=== PATIENT | female | born 1960 | race Caucasian/White ===

== ENCOUNTER 2020-09-12 13:01 | Outpatient (REF) | payer BC, SELFPAY ==
--- NOTE | 2020-09-12 13:07 | MM_ITS ---
EXAMINATION: BONE DENSITOMETRY CLINICAL INDICATION: Asymptomatic menopausal state. COMPARISON: None (current study represents initial baseline exam). TECHNIQUE: Using a [employer] DXA System (software version: 13.1) manufactured by [employer], dual-energy x-ray absorptiometry was performed of the lumbar spine and left hip. The images are of good technical quality. Summary results are attached. FINDINGS: AP SPINE L1-L4: BMD 0.963 g/cm2, Z-score -0.2, T-score -1.8, osteopenia. LEFT FEMUR, NECK: BMD 0.838 g/cm2, Z-score 0.1, T-score -1.4, osteopenia. LEFT FEMUR, TOTAL: BMD 0.829 g/cm2, Z-score -0.2, T-score -1.4, osteopenia. IDENTIFIED RISK FACTORS: Early menopause, secondary osteoporosis, hysterectomy. HISTORY OF FRACTURE: None listed. MEDICATIONS: Calcium supplements or multivitamin, vitamin D. MM/XR DEXA axial skeleton IMPRESSION: 1. DIAGNOSIS: Osteopenia based on the lowest T-score value of -1.8 in the lumbar spine applying World Health Organization criteria. 2. 10-YEAR FRACTURE RISK PREDICTION, FRAX: Major osteoporotic fracture (clinical spine, forearm, hip or shoulder) 7.4%. Hip fracture 0.7%. 3. Treatment Recommendations: NOF guidelines recommend consideration for treatment in postmenopausal women and men age 50 and older presenting with the following: -A hip or vertebral (clinical or morphometric) fracture. -T-score less than or equal to -2.5 at the femoral neck or spine after appropriate evaluation to exclude secondary causes. -Low bone mass at the hip or spine and a 10-year fracture probability by FRAX of greater than or equal to 3% for hip fracture or greater than or equal to 20% for major osteoporotic fracture based on the [place] adapted WHO algorithm. 4. Other Recommendations: All treatment decisions require clinical judgment and consideration of individual patient factors, including patient preferences, comorbidities, previous drug use, risk factors not captured in the FRAX model (e.g. frailty, falls, vitamin D deficiency, increased bone turnover, interval significant decline in bone density) and possible under or overestimation of fracture risk by FRAX. Additional medical evaluation for secondary cause of low bone mineral density may be appropriate. FUTURE SCAN RECOMMENDATION: People with diagnosed cases of osteoporosis or at high risk for fracture should have regular bone mineral density tests. For patients eligible for Medicare, routine testing is allowed once every 2 years. The testing frequency can be increased to one year for patients who have rapidly progressing disease, those who are receiving or discontinuing medical therapy to restore bone mass, or have additional risk factors.
--- NOTE | 2020-09-12 13:08 | MM_ITS ---
EXAMINATION: MM SCREENING DIGITAL BREAST TOMOSYNTHESIS, BILATERAL CLINICAL INFORMATION: Screening. Asymptomatic. The lifetime risk of breast cancer based on the Tyrer-Cuzick Model is 4.4%. COMPARISON: Mammography: October 17, 2018 and studies dating back to July 19, 2013 as well as reports dating back to July 02, 2011 TECHNIQUE: Digital breast tomosynthesis is performed in both the craniocaudal and mediolateral oblique views along with computer-aided detection (CAD). Synthesized 2D images are generated from the tomosynthesis. FINDINGS: The breasts are extremely dense, which lowers the sensitivity of mammography (ACR BI-RADS breast composition Category d). There is multiplicity and bilaterality of benign calcifications. There is also multiplicity and bilaterality of circumscribed densities which are waxing and waning consistent with previously seen cysts. No region of architectural distortion identified. MM/MM tomosynthesis screening BI IMPRESSION: There are no significant changes from prior study. ASSESSMENT: BI-RADS 2: Benign RECOMMENDATION: Routine annual mammography screening. This patient's information was entered into a reminder system with a target due date for their next mammogram.
== END 2020-09-12 13:02 | disposition home or self-care (01) ==
LOC: HO.MAMMO 13:01
PROVIDERS: PCP Internal Medicine; Visit Provider Internal Medicine
DX: Z78.0 Asymptomatic menopausal state (principal); Z12.31 Encounter for screening mammogram for malignant neoplasm of breast
CPT/HCPCS: 77063; 77067; 77080

== ENCOUNTER 2020-11-18 10:17 | Outpatient (REF) | payer BC, SELFPAY | END 2020-11-18 10:18 | disposition home or self-care (01) | LOC: HO.LAB 10:17 | PROVIDERS: Visit Provider Internal Medicine | DX: Z20.822 Contact with and (suspected) exposure to COVID-19 (principal) | CPT/HCPCS: 36415; C9803; U0003; U0005 ==

== ENCOUNTER 2021-06-12 09:47 | Outpatient (REF) | payer BC, SELFPAY ==
[2021-06-12 10:29] LABS: MANUAL DIFF FLAG NO
[2021-06-12 10:38] LABS: Basophils Absolute Auto 0.1 X10*3/uL (0.0-0.2); Eosinophils Absolute Auto 0.1 X10*3/uL (0.0-0.4); Eosinophils Percent Auto 1.2 % (0-4); Hematocrit 43.6 % (37-47); Hemoglobin 14.4 g/dl (12.0-16.0); Imm Gran Abs Auto 0.01 X10*3/uL (0.00-0.03); Imm Gran Pct Auto 0.2 % (0.0-0.4); Lymphocytes Absolute Auto 1.6 X10*3/uL (1.2-4.9); Lymphocytes Percent Auto 31.3 % (20-40); Mean Corpuscular Hemoglobin 32.1 pg (27.0-33.0); Mean Corpuscular Volume 97.1 fL (80-98); Mean Platelet Volume 9.5 fL (9.4-12.3); Monocytes Absolute Auto 0.6 X10*3/uL (0.1-1.2); Monocytes Percent Auto 11.4 % (2-11); Neutrophils Absolute Auto 2.8 X10*3/uL (2.0-8.3); Neutrophils Percent Auto 54.9 % (45-73); Platelet Count 246 X10*3/uL (160-400); Red Blood Count 4.49 X10*6/uL (4.20-5.50); Red Cell Distribution Width 13.1 % (11.0-16.0); White Blood Count 5.1 X10*3/uL (4.8-10.8)
[2021-06-12 11:10] LABS: Free T4 (Free Thyroxine) 1.14 ng/dL (0.71-1.85); Thyroid Stimulating Hormone 0.74 uIU/mL (0.32-4.0); Vitamin D 25-OH Total 34.4 ng/mL (>30)
[2021-06-12 11:21] LABS: Alanine Aminotransferase 24 U/L (0-31); Albumin Level 3.9 g/dL (3.5-5.0); Alkaline Phosphatase 86 U/L (39-117); Anion Gap 9 (12-20); Aspartate Amino Transferase 25 U/L (5-31); Bilirubin Total 0.7 mg/dL (0.0-1.0); Blood Urea Nitrogen 16 mg/dL (9-16); Carbon Dioxide 27 mmol/L (22-29); Chloride 107 mmol/L (96-108); Cholesterol 181 mg/dL; Estimated Glomerular Filt Rate > 60; Glucose Fasting 94 mg/dL (60-99); HDL Cholesterol 91 mg/dL; LDL Cholesterol Calculated 81 mg/dl; Potassium 4.1 mmol/L (3.3-5.1); Sodium 139 mmol/L (135-145); Total Protein 6.1 g/dL (6.5-8.0); Triglycerides 48 mg/dL
== END 2021-06-12 09:48 | disposition home or self-care (01) ==
LOC: HO.10HDL 09:47
PROVIDERS: Visit Provider Internal Medicine
DX: Z00.00 Encounter for general adult medical examination without abnormal findings (principal); E78.00 Pure hypercholesterolemia, unspecified; E04.1 Nontoxic single thyroid nodule; M85.80 Other specified disorders of bone density and structure, unspecified site
CPT/HCPCS: 36415; 80053; 80061; 82306; 84439; 84443; 85025

== ENCOUNTER 2021-06-25 14:52 | Outpatient (REF) | payer BC, SELFPAY ==
--- NOTE | ~2021-06-25 | US_ITS ---
EXAMINATION: US THYROID CLINICAL INFORMATION: Thyroid nodule. COMPARISON: Ultrasound soft tissue head/neck thyroid dated 04/24/2019 and 12/12/2017. TECHNIQUE: Linear transducer grayscale and color Doppler examination with attention to the region of the thyroid. FINDINGS: SIZE: Measurements of the thyroid lobes and nodules are given in sagittal, anteroposterior and transverse dimensions respectively. Right Thyroid Lobe: 5.3 x 2.0 x 2.0 cm, volume 11.1 mL. Previously 5.1 x 2.0 x 2.2 cm, volume 12.1 mL. Parenchyma: The gland echotexture is heterogeneous. Thyroid vascularity is normal. Left Thyroid Lobe: 5.4 x 2.0 x 1.8 cm, volume 10.2 mL. Previously 5.2 x 2.0 x 1.7 cm, volume 9.1 mL. Parenchyma: The gland echotexture is heterogeneous. Thyroid vascularity is normal. Isthmus: 0.5 cm in maximum AP dimension. Previously 0.6 cm. Estimated total number of nodules greater than or equal to 1 cm: 0. Collection Agent nodules are described as follows: 1. Location: Right mid. Size: 0.4 x 0.7 x 0.5 cm, volume 0.08 mL. Previously: 0.9 x 0.5 x 0.7 cm, volume 0.2 mL. Nodule characteristics: Composition: Mixed cystic and solid (1). Echogenicity: Hypoechoic (2). Shape: Not taller than wide (0). Margins: Smooth (0). Echogenic Foci: None (0). ACR TI-RADS total points: 3 ACR TI-RADS category: 3 Significant change in size (>/= 20% in 2 dimensions and minimal increase of 2 mm or 50% or greater increase in volume): Change in features: Change in ACR TI-RADS risk category: 2. Location: Right mid. Size: 0.4 x 0.4 x 0.3 cm, volume 0.03 mL. Previously: 0.4 x 0.2 x 0.4 cm, volume 0.02 mL. Nodule characteristics: Composition: Solid/almost completely solid (2). Echogenicity: Isoechoic (1). Shape: Not taller than wide (0). Margins: Smooth (0). Echogenic Foci: None (0). ACR TI-RADS total points: 3 ACR TI-RADS category: 3 Significant change in size (>/= 20% in 2 dimensions and minimal increase of 2 mm or 50% or greater increase in volume): Change in features: Change in ACR TI-RADS risk category: 3. Location: Right inferior. Size: 0.3 x 0.2 x 0.2 cm, volume 0.01 mL. Previously: 0.2 x 0.1 x 0.2 cm, volume 0.002 mL. Nodule characteristics: Composition: Cystic(0). ACR TI-RADS total points: 0 ACR TI-RADS category: 1 Significant change in size (>/= 20% in 2 dimensions and minimal increase of 2 mm or 50% or greater increase in volume): Change in features: Change in ACR TI-RADS risk category: 4. Location: Left mid. Size: 0.5 x 0.5 x 0.3 cm, volume 0.03 mL. Previously: 0.5 x 0.3 x 0.4 cm, volume 0.03 mL. Nodule characteristics: Composition: Solid/almost completely solid (2). Echogenicity: Isoechoic (1). Shape: Not taller than wide (0). Margins: Smooth (0). Echogenic Foci: None (0). ACR TI-RADS total points: 3 ACR TI-RADS category: 3 Significant change in size (>/= 20% in 2 dimensions and minimal increase of 2 mm or 50% or greater increase in volume): Change in features: Change in ACR TI-RADS risk category: 5. Location: Left inferior. Size: 0.5 x 0.6 x 0.4 cm, volume 0.07 mL. Previously: 0.6 x 0.3 x 0.5 cm, volume 0.05 mL. Nodule characteristics: Composition: Solid/almost completely solid (2). Echogenicity: Isoechoic (1). Shape: Not taller than wide (0). Margins: Smooth (0). Echogenic Foci: None (0). ACR TI-RADS total points: 3 ACR TI-RADS category: 3 Significant change in size (>/= 20% in 2 dimensions and minimal increase of 2 mm or 50% or greater increase in volume): Change in features: Change in ACR TI-RADS risk category: NODES: No lymphadenopathy is seen in the tissue surrounding the thyroid gland. US/US thyroid IMPRESSION: Slightly enlarged heterogeneous thyroid gland. Multiple small thyroid nodules not appreciably changed.. ACR TI-RADS RECOMMENDATION REFERENCE: Ultrasound-guided fine-needle aspiration, followup ultrasound, no further follow up. * TR1 (0 point) and TR 2 (2 points): No FNA or follow up * TR3 (3 points): FNA if more than or equal to 2.5 cm in maximum dimension, followup ultrasound in 1, 3 and 5 years if 1.5 to 2.4 cm in maximum dimension. * TR4 (4-6 points): FNA if more than or equal to 1.5 cm in maximum dimension, followup ultrasound in 1, 2, 3 and 5 years if 1 to 1.4 cm in maximum dimension. * TR5 (more than or equal to 7 points): FNA if more than or equal to 1 cm in maximum dimension, followup ultrasound every year for 5 years if 0.5 to 0.9 cm in maximum dimension. * TR3, TR4 or TR5 nodules that are below the size threshold for follow up receive no follow up.
== END 2021-06-25 14:53 | disposition home or self-care (01) ==
LOC: HO.US 14:52
PROVIDERS: PCP Internal Medicine; Visit Provider Internal Medicine
DX: E05.10 Thyrotoxicosis with toxic single thyroid nodule without thyrotoxic crisis or storm (principal)
CPT/HCPCS: 76536

== ENCOUNTER 2022-06-09 08:45 | Outpatient (REF) | payer BC, SELFPAY ==
[2022-06-09 10:30] LABS: MANUAL DIFF FLAG NO
[2022-06-09 10:38] LABS: Basophils Percent Auto 0.8 % (0-2); Eosinophils Percent Auto 0.8 % (0-4); Hematocrit 44.7 % (37.0-47.0); Hemoglobin 14.9 g/dl (12.0-16.0); Imm Gran Abs Auto 0.01 X10*3/uL (0.00-0.03); Imm Gran Pct Auto 0.2 % (0.0-0.4); Lymphocytes Absolute Auto 1.6 X10*3/uL (1.2-4.9); Lymphocytes Percent Auto 31.6 % (20-40); Mean Corpuscular HGB Conc 33.3 g/dl (31.0-35.0); Mean Corpuscular Hemoglobin 32.1 pg (27.0-33.0); Mean Corpuscular Volume 96.3 fL (80.0-98.0); Mean Platelet Volume 9.6 fL (9.4-12.3); Monocytes Absolute Auto 0.6 X10*3/uL (0.1-1.2); Monocytes Percent Auto 11.5 % (2-11); Neutrophils Absolute Auto 2.8 x10*3/uL (2.0-8.3); Neutrophils Percent Auto 55.1 % (45-73); Platelet Count 235 X10*3/uL (160-400); Red Blood Count 4.64 X10*6/uL (4.20-5.50); Red Cell Distribution Width 13.2 % (11.0-16.0); White Blood Count 5.1 X10*3/uL (4.8-10.8)
[2022-06-09 10:50] LABS: Alanine Aminotransferase 23 U/L (0-31); Alkaline Phosphatase 89 U/L (39-117); Anion Gap 12 (12-20); Aspartate Amino Transferase 22 U/L (5-31); Bilirubin Total 0.5 mg/dL (0.0-1.0); Blood Urea Nitrogen 20 mg/dL (9-16); Calcium 8.8 mg/dL (8.4-10.2); Carbon Dioxide 27 mmol/L (22-29); Chloride 104 mmol/L (96-108); Cholesterol 199 mg/dL; Estimated Glomerular Filt Rate > 60; Glucose Fasting 90 mg/dL (60-99); HDL Cholesterol 96 mg/dL; LDL Cholesterol Calculated 93 mg/dl; Potassium 4.2 mmol/L (3.3-5.1); Sodium 139 mmol/L (135-145); Total Protein 6.5 g/dL (6.5-8.0); Triglycerides 50 mg/dL
== END 2022-06-09 08:46 | disposition home or self-care (01) ==
LOC: HO.10HDL 08:45
PROVIDERS: Visit Provider Internal Medicine
DX: Z00.00 Encounter for general adult medical examination without abnormal findings (principal)
CPT/HCPCS: 36415; 80053; 80061; 85025

== ENCOUNTER 2022-06-21 13:28 | Outpatient (REF) | payer BC, SELFPAY ==
--- NOTE | ~2022-06-21 | US_ITS ---
EXAMINATION: US THYROID CLINICAL INFORMATION: Nodule. COMPARISON: Ultrasound soft tissue head/neck thyroid dated 06/25/2021 and 04/24/2019. TECHNIQUE: Linear transducer grayscale and color Doppler examination with attention to the region of the thyroid. FINDINGS: Numerous left lobe nodules were identified with largest ones measured. SIZE: Measurements of the thyroid lobes and nodules are given in sagittal, anteroposterior and transverse dimensions respectively. Right Thyroid Lobe: 5.3 x 1.5 x 2.0 cm, volume 8.3 mL. Previously 5.3 x 2.0 x 2.0 cm, volume 11.1 mL. Parenchyma: The gland echotexture is heterogeneous. Thyroid vascularity is increased. Left Thyroid Lobe: 5.4 x 1.7 x 1.5 cm, volume 7.2 mL. Previously 5.2 x 2.0 x 1.7 cm, volume 10.2 mL. Parenchyma: The gland echotexture is heterogeneous. Thyroid vascularity is increased. Isthmus: 0.5 cm in maximum AP dimension. Previously 0.5 cm. Estimated total number of nodules greater than or equal to 1 cm: 0. Scrap Sorter nodules are described as follows: 1. Location: Isthmus. Size: 0.5 x 0.3 x 0.6 cm, volume 0.04 mL. Previously: 0.4 x 0.2 x 0.3 cm, volume 0.01 mL. Nodule characteristics: Composition: Solid (2). Echogenicity: Isoechoic (1). Shape: Not taller than wide (0). Margins: Smooth (0). Echogenic Foci: None (0). ACR TI-RADS total points: 3 Previous: Not documented ACR TI-RADS category: 3 Previous: Not documented Significant change in size (>/= 20% in 2 dimensions and minimal increase of 2 mm or 50% or greater increase in volume): Yes Change in features: No Change in ACR TI-RADS risk category: No 2. Location: Right mid. Size: 0.4 x 0.3 x 0.5 cm, volume 0.03 mL. Previously: 0.4 x 0.3 x 0.4 cm, volume 0.02 mL. Nodule characteristics: Composition: Solid/almost completely solid (2). Echogenicity: Isoechoic (1). Shape: Not taller than wide (0). Margins: Smooth (0). Echogenic Foci: Punctate echogenic foci (3). ACR TI-RADS total points: 6 Previous: 3 ACR TI-RADS category: 4 Previous: 3 Significant change in size (>/= 20% in 2 dimensions and minimal increase of 2 mm or 50% or greater increase in volume): No Change in features: Yes Change in ACR TI-RADS risk category: Not applicable 3. Location: Right mid/inferior. Size: 0.6 x 0.3 x 0.4 cm, volume 0.03 mL. Previously: 0.4 x 0.7 x 0.5 cm, volume 0.08 mL. Nodule characteristics: Composition: Solid/almost completely solid (2). Echogenicity: Isoechoic (1). Shape: Not taller than wide (0). Margins: Smooth (0). Echogenic Foci: None (0). ACR TI-RADS total points: 3 Previous: 3 ACR TI-RADS category: 3 Previous: 3 Significant change in size (>/= 20% in 2 dimensions and minimal increase of 2 mm or 50% or greater increase in volume): No Change in features: No Change in ACR TI-RADS risk category: No 4. Location: Left mid. Size: 0.8 x 0.4 x 0.6 cm, volume 0.1 mL. Previously: New since the previous study. Nodule characteristics: Composition: Solid/almost completely solid (2). Echogenicity: Isoechoic (1). Shape: Not taller than wide (0). Margins: Smooth (0). Echogenic Foci: Punctate echogenic foci (3). ACR TI-RADS total points: 6 ACR TI-RADS category: 4 5. Location: Left mid/inferior. Size: 0.7 x 0.3 x 0.6 cm, volume 0.06 mL. Previously: 0.5 x 0.6 x 0.4 cm, volume 0.07 mL. Nodule characteristics: Composition: Solid/almost completely solid (2). Echogenicity: Isoechoic (1). Shape: Not taller than wide (0). Margins: Smooth (0). Echogenic Foci: None (0). ACR TI-RADS total points: 3 Previous: 3 ACR TI-RADS category: 3 Previous: 3 Significant change in size (>/= 20% in 2 dimensions and minimal increase of 2 mm or 50% or greater increase in volume): No Change in features: No Change in ACR TI-RADS risk category: No NODES: No lymphadenopathy is seen in the tissue surrounding the thyroid gland. US/US thyroid IMPRESSION: Multiple subcentimeter nodules. Routine follow-up not required by ACR recommendations. ACR TI-RADS RECOMMENDATION REFERENCE: * TR1 (0 point) and TR 2 (2 points): No FNA or follow up * TR3 (3 points): FNA if more than or equal to 2.5 cm in maximum dimension, followup ultrasound in 1, 3 and 5 years if 1.5 to 2.4 cm in maximum dimension. * TR4 (4-6 points): FNA if more than or equal to 1.5 cm in maximum dimension, followup ultrasound in 1, 2, 3 and 5 years if 1 to 1.4 cm in maximum dimension. * TR5 (more than or equal to 7 points): FNA if more than or equal to 1 cm in maximum dimension, followup ultrasound every year for 5 years if 0.5 to 0.9 cm in maximum dimension. * TR3, TR4 or TR5 nodules that are below the size threshold for follow up receive no follow up.
--- NOTE | ~2022-06-21 | XR_ITS ---
EXAMINATION: XR HAND, RIGHT CLINICAL INFORMATION: Osteoarthritis of the index finger COMPARISON: None TECHNIQUE: PA, lateral, and oblique views of the right hand. FINDINGS: Bone alignment is normal. No fracture or dislocation is seen. The joint spaces are normal. There is slight soft tissue swelling adjacent to the PIP joint of the second finger. There is faint soft tissue calcification in the triangular fibrocartilage complex region. Soft tissues are otherwise normal. XR/XR hand RT min 3V IMPRESSION: Mild soft tissue swelling adjacent to the PIP joint of the second finger.
[2022-06-21 15:24] LABS: Free T4 (Free Thyroxine) 1.02 ng/dL (0.71-1.85); Thyroid Stimulating Hormone 0.86 uIU/mL (0.32-4.0)
[2022-06-22 10:27] LABS: Thyroid Peroxidase Antibodies 1 IU/mL (<9)
== END 2022-06-21 13:29 | disposition home or self-care (01) ==
LOC: HO.US 13:28
PROVIDERS: Visit Provider Internal Medicine
DX: E04.2 Nontoxic multinodular goiter (principal)
CPT/HCPCS: 36415; 73130; 76536; 84439; 84443; 86376

== ENCOUNTER 2022-12-09 10:02 | Outpatient (REF) | payer BC, SELFPAY ==
--- NOTE | ~2022-12-09 | FL_ITS ---
EXAMINATION: FL BARIUM SWALLOW CLINICAL INFORMATION: Dysphagia COMPARISON: None TECHNIQUE: Barium swallow examination is performed using fluoroscopic evaluation in addition to multiple fluoroscopic spot views. The patient is imaged both upright and prone and using both thick and thin sulfate along with effervescent granules. Fluoroscopy time: 1.7 minutes DAP: 2.011 Gycm2 Images: 59 FINDINGS: Following oral administration of thick barium and barium coated turkey there is normal propagation of bolus from the oral cavity through the pharynx, esophagus into stomach without any evidence of obstruction, narrowing or stricture. The course, caliber and peristalsis is normal. No laryngeal penetration or aspiration seen. There is mild retention of barium in the right piriform sinus. On placing patient prone lying and oral administration of thin barium there is normal distention of the entire esophagus without any obstruction or narrowing. Mild gastroesophageal reflux was seen in the supine position. FL/FL barium swallow IMPRESSION: 1. No obstruction, narrowing seen in the esophagus. 2. Mild gastroesophageal reflux. 3. Mild retention of thick barium in the right piriform sinuses which clears with time.
== END 2022-12-09 10:03 | disposition home or self-care (01) ==
LOC: HO.XRAY 10:02
PROVIDERS: Visit Provider Otolaryngology
DX: R13.10 Dysphagia, unspecified (principal)
CPT/HCPCS: 74220

== ENCOUNTER 2023-04-22 15:45 | Outpatient (REF) | payer BC, SELFPAY ==
--- NOTE | ~2023-04-22 | XR_ITS ---
Examination: X-ray knee, bilateral INDICATION: Knee pain. COMPARISON: None. TECHNIQUE: 4 views of the bilateral knees. FINDINGS: Left knee: There is moderate joint space narrowing in the medial compartment with bony spurring. Mild to moderate degenerative change in the patellofemoral compartment and mild degenerative change in the lateral compartment. There is no significant joint effusion visualized. Right knee: Moderate to severe joint space narrowing in the medial compartment with marginal osteophyte formation. Moderate degenerative change in the patellofemoral compartment. There may be a suprapatellar joint effusion. No fracture. XR/XR knee RT 4V IMPRESSION: 1. Moderate to severe degenerative change in the medial compartment of the right knee. 2. Moderate degenerative change in the medial compartment of the left knee.
--- NOTE | ~2023-04-22 | XR_ITS ---
Examination: X-ray knee, bilateral INDICATION: Knee pain. COMPARISON: None. TECHNIQUE: 4 views of the bilateral knees. FINDINGS: Left knee: There is moderate joint space narrowing in the medial compartment with bony spurring. Mild to moderate degenerative change in the patellofemoral compartment and mild degenerative change in the lateral compartment. There is no significant joint effusion visualized. Right knee: Moderate to severe joint space narrowing in the medial compartment with marginal osteophyte formation. Moderate degenerative change in the patellofemoral compartment. There may be a suprapatellar joint effusion. No fracture. XR/XR knee LT 4V IMPRESSION: 1. Moderate to severe degenerative change in the medial compartment of the right knee. 2. Moderate degenerative change in the medial compartment of the left knee.
== END 2023-04-22 15:46 | disposition home or self-care (01) ==
LOC: HO.XRAY 15:45
PROVIDERS: PCP Internal Medicine; Visit Provider Internal Medicine
DX: M25.561 Pain in right knee (principal); M25.562 Pain in left knee
CPT/HCPCS: 73564

== ENCOUNTER 2023-05-26 13:02 | Outpatient (REF) | payer BC, SELFPAY ==
--- NOTE | ~2023-05-26 | MM_ITS ---
EXAMINATION: BONE DENSITOMETRY CLINICAL INDICATION: Asymptomatic menopausal state. COMPARISON: Baseline BD dated 09/12/2020. TECHNIQUE: Using a [employer] DXA System (software version: 13.1) manufactured by [employer], dual-energy x-ray absorptiometry was performed of the lumbar spine and left hip. The images are of good technical quality. Summary results are attached. FINDINGS: LEFT FEMUR, NECK: Current: BMD 0.678 g/cm2, Z-score -1.0, T-score -2.6, osteoporosis. Baseline: BMD 0.838 g/cm2. LEFT FEMUR, TOTAL: Current: BMD 0.730 g/cm2, Z-score -0.9, T-score -2.2, osteopenia, 11.9% decrease from baseline (<5% change is not significant). Baseline: BMD 0.829 g/cm2. AP SPINE L1-L4: Current: BMD 0.959 g/cm2, Z-score -0.1, T-score -1.8, osteopenia, 0.4% decrease from baseline (<5% change is not significant). Baseline: BMD 0.963 g/cm2. IDENTIFIED RISK FACTORS: Recurrent falls. Early menopause, secondary osteoporosis, hysterectomy. HISTORY OF FRACTURE: None listed. MEDICATIONS: Calcium supplements or multivitamin, vitamin D. MM/XR DEXA axial skeleton IMPRESSION: 1. DIAGNOSIS: Osteoporosis based on the lowest T-score value of -2.6 in the femoral neck applying World Health Organization criteria. 2. 10-YEAR FRACTURE RISK PREDICTION, FRAX: According to the guidelines, FRAX calculation should only be performed on patients in the osteopenia bone density category. Therefore, FRAX was not performed on this patient. 3. Treatment Recommendations: NOF guidelines recommend consideration for treatment in postmenopausal women and men age 50 and older presenting with the following: -A hip or vertebral (clinical or morphometric) fracture. -T-score less than or equal to -2.5 at the femoral neck or spine after appropriate evaluation to exclude secondary causes. -Low bone mass at the hip or spine and a 10-year fracture probability by FRAX of greater than or equal to 3% for hip fracture or greater than or equal to 20% for major osteoporotic fracture based on the [place] adapted WHO algorithm. 4. Other Recommendations: All treatment decisions require clinical judgment and consideration of individual patient factors, including patient preferences, comorbidities, previous drug use, risk factors not captured in the FRAX model (e.g. frailty, falls, vitamin D deficiency, increased bone turnover, interval significant decline in bone density) and possible under or overestimation of fracture risk by FRAX. Additional medical evaluation for secondary cause of low bone mineral density may be appropriate. FUTURE SCAN RECOMMENDATION: People with diagnosed cases of osteoporosis or at high risk for fracture should have regular bone mineral density tests. For patients eligible for Medicare, routine testing is allowed once every 2 years. The testing frequency can be increased to one year for patients who have rapidly progressing disease, those who are receiving or discontinuing medical therapy to restore bone mass, or have additional risk factors.
--- NOTE | ~2023-05-26 | MM_ITS ---
EXAMINATION: MM SCREENING DIGITAL BREAST TOMOSYNTHESIS, BILATERAL CLINICAL INFORMATION: Screening. Asymptomatic. COMPARISON: Mammography: 09/12/2020, 10/17/2018, and dating back to 2012. TECHNIQUE: Digital breast tomosynthesis is performed in both the craniocaudal and mediolateral oblique views along with computer-aided detection (CAD). Synthesized 2D images are generated from the tomosynthesis. FINDINGS: The breasts are heterogeneously dense, which may obscure small masses (ACR BI-RADS breast composition Category c). There are numerous benign dystrophic appearing rounded calcifications throughout both breasts. There are a few punctate fine calcifications which are loosely grouped within the central and upper breast bilaterally without change. These appear benign. MM/MM tomosynthesis screening BI IMPRESSION: No mammographic evidence of malignancy. Stable benign findings ASSESSMENT: BI-RADS BI-RADS 2 - Benign Findings RECOMMENDATION: Routine annual mammography screening. 1 year F/U This examination should not preclude the clinical evaluation of a suspicious palpable abnormality. This patient's information was entered into a reminder system with a target due date for their next mammogram.
== END 2023-05-26 13:03 | disposition home or self-care (01) ==
LOC: HO.MAMMO 13:02
PROVIDERS: PCP Internal Medicine; Visit Provider Internal Medicine
DX: Z12.31 Encounter for screening mammogram for malignant neoplasm of breast (principal); Z13.820 Encounter for screening for osteoporosis; Z78.0 Asymptomatic menopausal state
CPT/HCPCS: 77063; 77067; 77080

== ENCOUNTER → 2023-05-26 13:30 | Outpatient (BNV) | payer BC, SELFPAY | PROVIDERS: PCP Internal Medicine; Visit Provider Radiology Diagnostic Radiology | DX: Z12.31 Encounter for screening mammogram for malignant neoplasm of breast (principal) | CPT/HCPCS: 77063; 77067; 77080 ==

== ENCOUNTER 2023-06-07 11:37 | Outpatient (AMB) | payer BC, SELFPAY ==
--- NOTE | 2023-06-07 11:38 | A.OFFVIS_ITS ---
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 Patient reports having knee soreness for a while but her right knee has gotten worse after 2 different injuries. She states about 5 months ago she had banged her knee on the edge of a bed frame, as well as a fall on her right knee. Currently she feels a band that wraps around her knee and describes as a tightness. Her right knee has swelling and is unable to kneel down. Denies numbness or tingling. No previous tx. She does not like to take medications if she does not have to. She said at times her right knee will give out at times when she is walking. Allergies cortisone Adverse Reaction (Verified 06/07/23 11:58) heart palpation Medication List - Last Reconciled 06/07/23 by Jean Blanc MD simvastatin 20 mg PO BEDTIME [facility] Social History (Updated 06/07/23 @ 11:57 by Elyse Barrett [facility]) Patient Tobacco Use Status: Never used Tobacco Current occupational status: unemployed Physical Exam Vital Signs: BMI result Body Mass Index 21.8 Const Other: Well-nourished well-developed very friendly female awake alert and oriented x3 in no acute distress Extrem Other: Bilateral lower extremity examination shows good capillary refill, no skin lesions noted, normal sensation light touch Bilateral knee examination shows minimal effusions, mild crepitus with range of motion, mild to moderate discomfort with range of motion, no instability Results Reviewed Results Reviewed: X-rays of the patient's right knee shows moderate to severe joint space narrowing most significant in the medial compartment, no acute bony abnormalities X-rays of the patient's left knee show moderate joint space narrowing most significant in the medial compartment, no acute bony abnormalities Assessment & Plan Assessment & Plan (1) Arthritis of both knees: Code(s): M17.0 - Bilateral primary osteoarthritis of knee Plan Ms. Petersen presents with bilateral knee pains, right greater than left, due to degenerative joint disease. I had a lengthy discussion with the patient regarding the treatment options. We will hold off on a cortisone injection for now. I did have her fitted with a knee brace for her right knee. Because of her symptoms of instability I do find that the brace is a medical necessity to help her prevent injury. Also gave her a prescription to go to formal physical therapy. Activity modifications were also discussed with the patient. She will follow up with me on an as-needed basis should her symptoms not plateau at an unacceptable level over the next few months due to call me at any time should questions regarding her orthopedic management arise. Thank you very much for asking me to see this very friendly patient. I spent 22 minutes in reviewing the patient's records and imaging studies, seeing the patient and documenting in the medical record. Orders: Orders 2 PT Evaluation and Treatment Today M17.0 - Bilateral primary osteoarthritis of knee Coding Level of Care Code New Pt Level 2 (18088) Diagnoses Arthritis of both knees M17.0
[2023-06-07 11:58] VITALS: BMI 21.8
== END 2023-06-07 12:32 | disposition home or self-care (01) ==
PROVIDERS: PCP Internal Medicine; Visit Provider Orthopaedic Surgery
DX: M17.0 Bilateral primary osteoarthritis of knee (principal)
CPT/HCPCS: 99202

== ENCOUNTER → 2023-06-07 11:37 | Outpatient (BNVA) | payer BC, SELFPAY | PROVIDERS: PCP Internal Medicine; Visit Provider Orthopaedic Surgery ==

== ENCOUNTER 2023-06-29 09:19 | Outpatient (REF) | payer BC, SELFPAY ==
[2023-06-29 10:32] LABS: MANUAL DIFF FLAG NO
[2023-06-29 10:46] LABS: Basophils Absolute Auto 0.1 X10*3/uL (0.0-0.2); Basophils Percent Auto 0.9 % (0-2); Eosinophils Absolute Auto 0.1 X10*3/uL (0.0-0.4); Eosinophils Percent Auto 1.1 % (0-4); Hematocrit 46.5 % (37.0-47.0); Hemoglobin 15.3 g/dl (12.0-16.0); Imm Gran Abs Auto 0.01 X10*3/uL (0.00-0.03); Imm Gran Pct Auto 0.2 % (0.0-0.4); Lymphocytes Absolute Auto 1.8 X10*3/uL (1.2-4.9); Lymphocytes Percent Auto 31.6 % (20-40); Mean Corpuscular HGB Conc 32.9 g/dl (31.0-35.0); Mean Corpuscular Hemoglobin 32.1 pg (27.0-33.0); Mean Corpuscular Volume 97.5 fL (80.0-98.0); Mean Platelet Volume 9.6 fL (9.4-12.3); Monocytes Absolute Auto 0.6 X10*3/uL (0.1-1.2); Monocytes Percent Auto 10.5 % (2-11); Neutrophils Absolute Auto 3.1 x10*3/uL (2.0-8.3); Neutrophils Percent Auto 55.7 % (45-73); Platelet Count 260 X10*3/uL (160-400); Red Blood Count 4.77 X10*6/uL (4.20-5.50); Red Cell Distribution Width 13.2 % (11.0-16.0); White Blood Count 5.5 X10*3/uL (4.8-10.8)
[2023-06-29 11:45] LABS: Alanine Aminotransferase 18 U/L (0-31); Albumin Level 3.8 g/dL (3.5-5.0); Alkaline Phosphatase 84 U/L (39-117); Anion Gap 11 (12-20); Aspartate Amino Transferase 21 U/L (5-31); Bilirubin Total 0.5 mg/dL (0.0-1.0); Blood Urea Nitrogen 18 mg/dL (9-16); Carbon Dioxide 26 mmol/L (22-29); Chloride 106 mmol/L (96-108); Cholesterol 192 mg/dL (<200); Estimated Glomerular Filt Rate > 60; Glucose Fasting 93 mg/dL (60-99); HDL Cholesterol 95 mg/dL (>40); LDL Cholesterol Calculated 88 mg/dL (<100); Potassium 4.2 mmol/L (3.3-5.1); Sodium 139 mmol/L (135-145); Total Protein 6.5 g/dL (6.5-8.0); Triglycerides 47 mg/dL (<150)
[2023-06-29 11:51] LABS: Free T4 (Free Thyroxine) 0.99 ng/dL (0.71-1.85); Thyroid Stimulating Hormone 0.96 uIU/mL (0.32-4.0); Vitamin D 25-OH Total 48.5 ng/mL (>30)
== END 2023-06-29 09:20 | disposition home or self-care (01) ==
LOC: HO.10HDL 09:19
PROVIDERS: Visit Provider Internal Medicine
DX: E78.00 Pure hypercholesterolemia, unspecified (principal); M81.0 Age-related osteoporosis without current pathological fracture; E04.2 Nontoxic multinodular goiter
CPT/HCPCS: 36415; 80053; 80061; 82306; 84439; 84443; 85025

== ENCOUNTER 2023-07-07 16:02 | Outpatient (REF) | payer BC, SELFPAY ==
--- NOTE | ~2023-07-07 | US_ITS ---
EXAMINATION: US THYROID CLINICAL INFORMATION: Multinodular goiter. COMPARISON: Thyroid ultrasound 06/21/2022 and 06/25/2021. CT neck 08/03/2011. TECHNIQUE: Linear transducer grayscale and color Doppler examination with attention to the region of the thyroid. FINDINGS: SIZE: Measurements of the thyroid lobes and nodules are given in sagittal, anteroposterior and transverse dimensions respectively. Right Thyroid Lobe: 5.1 x 1.8 x 2.1 cm, volume 10.1 mL. Previously 5.3 x 1.5 x 2.0 cm, volume 8.3 mL. Parenchyma: The gland echotexture is heterogeneous. Thyroid vascularity is increased. Left Thyroid Lobe: 5.5 x 2.0 x 2.0 cm, volume 11.5 mL. Previously 5.4 x 1.7 x 1.5 cm, volume 7.2 mL. Parenchyma: The gland echotexture is heterogeneous. Thyroid vascularity is increased. Isthmus: 0.4 cm in maximum AP dimension. Previously 0.5 cm. Estimated total number of nodules greater than or equal to 1 cm: 0. [place] [employer] Operator nodules are described as follows: 1. Location: Isthmus. Size: 0.5 x 0.3 x 0.5 cm, volume 0.04 mL. Previously: 0.5 x 0.3 x 0.6 cm, volume 0.04 mL. Nodule characteristics: Composition: Solid (2). Echogenicity: Isoechoic (1). Shape: Not taller than wide (0). Margins: Smooth (0). Echogenic Foci: None (0). ACR TI-RADS total points: 3 Previous: 3 ACR TI-RADS category: 3 Previous: 3 Significant change in size (>/= 20% in 2 dimensions and minimal increase of 2 mm or 50% or greater increase in volume): No Change in features: No Change in ACR TI-RADS risk category: No 2. Location: Right mid pole. Size: 0.5 x 0.5 x 0.3 cm, volume 0.04 mL. Previously: 0.4 x 0.3 x 0.5 cm, volume 0.03 mL. Nodule characteristics: Composition: Solid/almost completely solid (2). Echogenicity: Isoechoic (1). Shape: Taller than wide (3). Margins: Smooth (0). Echogenic Foci: None (0). ACR TI-RADS total points: 6 Previous: 6 ACR TI-RADS category: 4 Previous: 4 Significant change in size (>/= 20% in 2 dimensions and minimal increase of 2 mm or 50% or greater increase in volume): No Change in features: No Change in ACR TI-RADS risk category: No 3. Location: Right mid pole/lateral pole. Size: 0.2 x 0.1 x 0.2 cm, volume 0.003 mL. Previously: 0.6 x 0.4 x 0.3 cm, volume 0.03 mL. Nodule characteristics: Composition: Cystic(0). ACR TI-RADS total points: 0 Previous: 3 ACR TI-RADS category: 1 Previous: 3 Significant change in size (>/= 20% in 2 dimensions and minimal increase of 2 mm or 50% or greater increase in volume): Yes Change in features: Yes Change in ACR TI-RADS risk category: Yes 4. Location: Left mid pole. Size: 0.6 x 0.4 x 0.6 cm, volume 0.06 mL. Previously: 0.8 x 0.4 x 0.6 cm, volume 0.1 mL. Nodule characteristics: Composition: Solid/almost completely solid (2). Echogenicity: Isoechoic (1). Shape: Not taller than wide (0). Margins: Irregular (2). Echogenic Foci: None (0). ACR TI-RADS total points: 5 Previous: 6 ACR TI-RADS category: 4 Previous: 4 Significant change in size (>/= 20% in 2 dimensions and minimal increase of 2 mm or 50% or greater increase in volume): No Change in features: Yes Change in ACR TI-RADS risk category: No 5. Location: Left mid/lower pole. Size: 0.8 x 0.4 x 0.7 cm, volume 0.1 mL. Previously: 0.7 x 0.3 x 0.6 cm, volume 0.06 mL. Nodule characteristics: Composition: Spongiform (0). ACR TI-RADS total points: 0 Previous: 3 ACR TI-RADS category: 1 Previous: 3 Significant change in size (>/= 20% in 2 dimensions and minimal increase of 2 mm or 50% or greater increase in volume): Yes Change in features: Yes Change in ACR TI-RADS risk category: Yes NODES: No lymphadenopathy is seen in the tissue surrounding the thyroid gland. US/US thyroid IMPRESSION: 1. Small bilateral thyroid nodules are seen, as detailed. 2. There is a mild goiter. 3. There is heterogeneous thyroid echotexture and increased vascularity 4. Continued thyroid ultrasound surveillance is recommended. ACR TI-RADS RECOMMENDATION REFERENCE: Ultrasound-guided fine-needle aspiration, follow up ultrasound, no further followup. * TR1 (0 point) and TR2 (2 points): No FNA or followup * TR3 (3 points): FNA if more than or equal to 2.5 cm in maximum dimension, follow up ultrasound in 1, 3 and 5 years if 1.5 to 2.4 cm in maximum dimension. * TR4 (4-6 points): FNA if more than or equal to 1.5 cm in maximum dimension, follow up ultrasound in 1, 2, 3 and 5 years if 1 to 1.4 cm in maximum dimension. * TR5 (more than or equal to 7 points): FNA if more than or equal to 1 cm in maximum dimension, follow up ultrasound every year for 5 years if 0.5 to 0.9 cm in maximum dimension. * TR3, TR4 or TR5 nodules that are below the size threshold for follow up receive no followup.
== END 2023-07-07 16:03 | disposition home or self-care (01) ==
LOC: HO.US 16:02
PROVIDERS: PCP Internal Medicine; Visit Provider Internal Medicine
DX: E04.2 Nontoxic multinodular goiter (principal)
CPT/HCPCS: 76536

== ENCOUNTER 2023-07-26 11:13 | Outpatient (AMB) | payer BC, SELFPAY ==
--- NOTE | 2023-07-26 11:14 | A.OFFVIS_ITS ---
Intake Vital Signs 07/26/23 11:19 Height 5 ft 2 in Weight 119 lb BMI 21.8 Intake Visit Reasons: ov- right knee pain Intake Note: Chuyita is a 62 year old female who presents today with complaints of bilateral knee pain. Patient reports having knee soreness for a while but her right knee has gotten worse after 2 different injuries. She states about 5 months ago she had banged her knee on the edge of a bed frame, as well as a fall on her right knee. Currently she feels a band that wraps around her knee and describes as a tightness. Her right knee has swelling and is unable to kneel down. Denies numbness or tingling. The patient describes her pain as sharp in nature. Most of the pain is along the medial aspect of her knee. She has done physical therapy for 12 weeks over the last 6 months which aggravated her pain. She has also had injections in the past which gave her minimal relief. She has tried Tylenol and anti-inflammatory medicines which gave her only mild relief. She states that her right knee will give out several times per day. Allergies cortisone Adverse Reaction (Verified 06/07/23 11:58) heart palpation [facility] Social History Patient Tobacco Use Status: Never used Tobacco Current occupational status: unemployed Physical Exam Vital Signs: BMI result Body Mass Index 21.8 Const Other: Well-nourished well-developed very friendly female awake alert and oriented x3 in no acute distress Extrem Other: Bilateral lower extremity examination shows good capillary refill, no skin lesions noted, normal sensation light touch Right knee examination shows a minimal effusion, minimal crepitus with range of motion, tenderness along her medial joint line, positive Kimi's test, no instability Results Reviewed Results Reviewed: X-rays of the patient's right knee show mild joint space narrowing, no acute bony abnormalities Assessment & Plan Assessment & Plan (1) Right knee pain: Code(s): M25.561 - Pain in right knee Plan: Ms. Petersen presents with progressively worsening right knee pain and mechanical symptoms most likely due to a tear of her medial meniscus. Thus, I will send the patient for an MRI of her right knee for further evaluation. I will see her back once the MRI is completed to discuss the findings and treatment options. Feel free to call me at any time should questions regarding her orthopedic management arise. I spent 22 minutes in reviewing the patient's records and imaging studies, seeing the patient and documenting in the medical record. Coding Level of Care Code Est Pt Level 2 (12532) Diagnoses Right knee pain M25.561
[2023-07-26 11:19] VITALS: BMI 21.8
== END 2023-07-26 11:37 | disposition home or self-care (01) ==
PROVIDERS: PCP Internal Medicine; Visit Provider Orthopaedic Surgery
DX: M25.561 Pain in right knee (principal)
CPT/HCPCS: 99212

== ENCOUNTER → 2023-07-26 11:13 | Outpatient (BNVA) | payer BC, SELFPAY | PROVIDERS: PCP Internal Medicine; Visit Provider Orthopaedic Surgery ==

== ENCOUNTER 2023-08-29 18:48 | Outpatient (REF) | payer BC, SELFPAY ==
--- NOTE | ~2023-08-29 | MR_ITS ---
EXAMINATION: MR KNEE WITHOUT CONTRAST, RIGHT CLINICAL INFORMATION: Right knee pain. COMPARISON: 04/22/2023 TECHNIQUE: MRI of the knee without contrast was performed using routine sequences on a high-field scanner. FINDINGS: MENISCI: Medial Meniscus: A chronic tear is noted at the posterior horn near the root with a thin band of irregular, residual intact fibers at the lateral 1.5 cm of the posterior horn. The meniscal body is extruded medially with inner margin fraying. Lateral Meniscus: Intact LIGAMENTS: Cruciate: Intact Collateral: Edema signal around the MCL is likely reactive to the underlying meniscal abnormality. Collateral ligaments are intact. EXTENSOR MECHANISM: Enthesopathic spurring is present at the quadriceps tendon insertion on the patella. Patellar tendon is normal. ARTICULAR CARTILAGE/BONE: Patellofemoral Compartment: Severe articular cartilage loss at the patella is more pronounced at the lateral facet and median ridge and is associated with cortical remodeling, marginal osteophytes, and foci of subchondral edema. More moderate nonuniform chondral thinning is present in the trochlea, also more pronounced at the lateral facet. Small trochlear osteophytes. Medial Compartment: Severe articular cartilage loss is present at the medial halves of the medial femoral condyle and medial tibial plateau weightbearing surfaces with underlying articular cortical sclerosis and subchondral edema. Moderate to large marginal osteophytes. No acute fractures are identified. Intraosseous cystic change at the posterior aspect of the tibial plateau likely correspond to an intraosseous ganglion cyst arising from the posterior root of the medial meniscus. Lateral Compartment: There is jozy-mc-isxolanf nonuniform chondral thinning at the posteromedial half of the lateral tibial plateau with extension onto the lateral tibial spine. More minimal chondral thinning of the lateral femoral condyle. Small to moderate size marginal osteophytes. JOINT FLUID AND BURSAE: Moderate-sized joint effusion with mild synovitis. MR/MR knee RT wo con IMPRESSION: 1. Zmhzanxv-ey-[id number] medial and patellofemoral compartment osteoarthritis. More [id number]-[id number] lateral compartment osteoarthritis. 2. Chronic high-grade radial tear of the posterior horn of the medial meniscus with extrusion of the meniscal body. 3. Moderate-sized joint effusion.
== END 2023-08-29 18:49 | disposition home or self-care (01) ==
LOC: HO.MRI 18:48
PROVIDERS: PCP Internal Medicine; Visit Provider Orthopaedic Surgery
DX: M25.561 Pain in right knee (principal)
CPT/HCPCS: 73721

== ENCOUNTER 2023-09-13 13:11 | Outpatient (AMB) | payer BC, SELFPAY ==
--- NOTE | 2023-09-13 13:12 | MHC.OFFVIS ---
Intake Intake Visit Reasons: ov-MRI Knee RT review Intake Note: Chuyita is a 62 year old female who presents today for right knee MRI review. The patient describes her right knee pain as sharp in nature. Pain has gotten worse over the last year in spite of continued non operative treatments. She has tried acupuncture treatments which gave her minimal relief. She has also had injections in the past which gave her no relief. She has done physical therapy exercises which aggravated her pain. She has also tried Tylenol and anti-inflammatory medicines which gave her minimal relief. She states that her right knee will give out several times per day. Allergies cortisone Adverse Reaction (Verified 06/07/23 11:58) heart palpation Medication List - Last Reconciled 09/13/23 by Jean Blanc MD simvastatin 20 mg PO BEDTIME [facility] Social History Patient Tobacco Use Status: Never used Tobacco Current occupational status: unemployed Physical Exam Const Other: Well-nourished well-developed very friendly female awake alert and oriented x3 in no acute distress Extrem Other: Bilateral lower extremity examination shows good capillary refill, no skin lesions noted, normal sensation light touch Right knee examination shows a minimal effusion, minimal crepitus with range of motion, tenderness along her medial joint line, positive Kimi's test, no instability Results Reviewed Results Reviewed: Standing full weight-bearing x-rays of the patient's right knee show mild diffuse grade 1 joint space narrowing, no acute bony abnormalities MRI of the patient's right knee shows mild diffuse degenerative changes as well as a tear of the medial meniscus and possible lateral meniscus tearing Assessment & Plan Assessment & Plan (1) Right knee pain: Code(s): M25.561 - Pain in right knee Plan Ms. Petersen presents with progressively worsening right knee pain and mechanical symptoms due to a tear of her medial meniscus and possible lateral meniscus tearing. I had a lengthy discussion with the patient regarding the treatment options. At this point she has failed continued non operative treatment. The risks and benefits of right knee arthroscopic surgery were discussed at length with the patient. The patient wishes to proceed with surgery. She does understand that she may not get 100% relief of her symptoms depending on the severity of her degenerative changes. The patient will contact my office to pick a surgery date. She will follow-up as instructed. Feel free to call me at any time should questions regarding her orthopedic management arise. I spent 22 minutes in reviewing the patient's records and imaging studies, seeing the patient and documenting in the medical record. Coding Level of Care Code Est Pt Level 2 (43391) Diagnoses Right knee pain M25.561
== END 2023-09-13 14:07 | disposition home or self-care (01) ==
PROVIDERS: PCP Internal Medicine; Visit Provider Orthopaedic Surgery
DX: M25.561 Pain in right knee (principal)
CPT/HCPCS: 99212

== ENCOUNTER → 2023-09-13 13:11 | Outpatient (BNVA) | payer BC, SELFPAY | PROVIDERS: PCP Internal Medicine; Visit Provider Orthopaedic Surgery ==

== ENCOUNTER 2023-09-19 15:00 | Outpatient (RCR) | payer BC, SELFPAY ==
--- NOTE | 2023-07-05 10:30 | MHC.PT.EP ---
[facility] [place] Office [place] Office [place] Office [address] Shanda Ivy [address] [phone] F: [phone] F: [phone] F: [phone] F: [phone] Physical Therapy Plan of Care Date of Evaluation: 07/04/23 Date of Surgery: n/a Diagnosis: Bilateral primary osteoarthritis of knee Assessment: Pt is a pleasant and motivated 62yo F who presents to PT with R knee pain for ~6 months. She presents to PT with current impairments in pain, decreased R knee ROM, decreased RLE strength, impaired body mechanics, and impaired gait. She is limited functionally by kneeling, pivoting, prolonged sitting, prolonged standing, and walking downhill. She is an excellent candidate for skilled PT in order to address current impairments to facilitate return to PLOF. She is recommended to be seen 2x/week for 4 weeks and will be reassessed at that time. Frequency and Duration: The patient will be seen 2x/week for 4 weeks Short Term Goals: Pt will be I with HEP to promote self management of symptoms Pt will improve R knee extension by at least 5 degrees Fci Goals: Pt will achieve full, pain-free ROM and strength throughout R knee Pt will ambulate > 1 hour on even and uneven surfaces with minimal to no discomfort Pt will demonstrate improvements in function as evidenced by statistically significant improvement in LEFI outcome measure Treatment Plan: Modalities to reduce pain, spasms and effusion. Manual therapy to restore motion and function. Therapeutic exercise to improve strength and flexibility. Neuromuscular re-education for posture and balance. Therapeutic activities to return to functional activities of daily living. Electronically signed by: Jes Davenport, PT, DPT Please sign and return to therapist. Thank you for your referral.
--- NOTE | 2023-09-22 16:21 | MHC.PT.DC ---
[facility] [place] Office [place] Office [place] Office [address] Shanda Ivy [address] [phone] F: [phone] F: [phone] F: [phone] F: [phone] Physical Therapy Discharge Report Diagnosis: Bilateral primary osteoarthritis of knee Date of Surgery: n/a Date of Evaluation: 07/04/23 Date of Discharge: 09/22/23 Treatments to Date: 14 Cancellations to Date: No Shows to Date: Discharge Status: Independent with HEP Discharge Summary: Pt has been very motivated with PT since SOC. She has improved her strength and mobility however she continues to have persistent right knee pain. She has decided to undergo right knee surgery with Dr. Blanc at the end of September. She is being D/C from skilled PT at this time Electronically signed by: Jes Davenport, PT, DPT Please sign and return to therapist. Thank you for your referral.
== END 2023-09-22 16:20 | disposition home or self-care (01) ==
LOC: HO.PT 15:00
PROVIDERS: PCP Internal Medicine; Visit Provider Orthopaedic Surgery
DX: M17.0 Bilateral primary osteoarthritis of knee (principal)
CPT/HCPCS: 97110; 97112; 97140; 97161

== ENCOUNTER 2023-10-07 09:25 | Day surgery (SDC) | payer BC, SELFPAY ==
[2023-10-05 09:56] VITALS: BMI 21.8
[2023-10-05 11:07] VITALS: BMI 21.4
--- NOTE | 2023-10-06 09:56 | P.CONAN_ITS ---
Documented by User: Romi Bautista NP 10/06/23 09:58 HPI - Anesthesia Eval Consult details Narrative: 62yo F for Right Knee Arthroscopy partial medial meniscectomy, possible lateral meniscectomy PMFSH Active Problems Active Problems: All Active Problems (Updated 10/05/23 @ 11:05 by Beverly Bustillo RN) Right knee pain (Acute) Arthritis of both knees (Acute) Past Medical History Medical History PONV (postoperative nausea and vomiting) History of Mohs micrographic surgery for skin cancer Hx of skin cancer, basal cell Arthritis Low back pain Acid reflux Anxiety Snores Personal history of cardiac murmur Hyperlipidemia Arthritis Surgical History Surgical History Hx of lymph node excision History of ear surgery Hx of inguinal hernia repair Hx of hysterectomy Hx of nasal septoplasty Social History Social History (Updated 10/05/23 @ 11:09 by Beverly Bustillo RN) Household Members: Spouse Housing: House Are you a primary primary care physician to a significant other at home: No Do you presently have visiting nurse or other home services: No Comment: aware of trip hazard Patient Tobacco Use Status: Never used Tobacco Use of substances other than those prescribed or required for medical reasons: No Have you been hit, kicked, punched, or otherwise hurt by someone within the past year? If so, by whom?: No Are you DNR?: No Advance Directives: No Advance Directives Information Provided: Yes Advance Directives on File: No Recently lost weight without trying: No Nutrition Risks: No Nutritional Risk Current occupational status: unemployed Meds Allergies Allergy/AdvReac Type Severity Reaction Status Date / Time amoxicillin Allergy Rash Verified 10/07/23 09:39 cortisone AdvReac heart Verified 10/07/23 09:39 palpation diphenhydramine AdvReac jittery Verified 10/07/23 09:39 [From Benadryl] Active Medications: Current Medications Cefazolin Sodium/Dextrose (Ancef) 2 gm in 50 mls @ 100 mls/hr IV PREOP ONE Stop: 10/07/23 07:16 Home Medications Medication Instructions Recorded Confirmed Last Taken Type simvastatin 20 mg tablet 20 mg PO BEDTIME 08/10/07/23 10/06/23 History Exam Height,Weight and Vital Signs: Height 5 ft 2 in Weight 53.07 kg Pertinent Lab Results Pertinent Lab Results: Laboratory Tests 06/29/23 09:30 WBC 5.5 Hgb 15.3 Hct 46.5 Plt Count 260 Sodium 139 Potassium 4.2 Chloride 106 Carbon Dioxide 26 BUN 18 H Creatinine 0.80 Assessment and Plan Assessment Anesthesia Assessment: Chart Reviewed Documented by User: Dieter Salcedo MD 10/07/23 11:08 PMF Past Medical History Medical History PONV (postoperative nausea and vomiting) History of Mohs micrographic surgery for skin cancer Hx of skin cancer, basal cell Arthritis Low back pain Acid reflux Anxiety Snores Personal history of cardiac murmur Hyperlipidemia Arthritis Family History Family history of problems with anesthesia: No Surgical History Surgical History Hx of lymph node excision History of ear surgery Hx of inguinal hernia repair Hx of hysterectomy Hx of nasal septoplasty History of Problems with Anesthesia: No Social History Social History (Updated 10/05/23 @ 11:09 by Beverly Bustillo RN) Household Members: Spouse Housing: House Are you a primary primary care physician to a significant other at home: No Do you presently have visiting nurse or other home services: No Comment: aware of trip hazard Patient Tobacco Use Status: Never used Tobacco Use of substances other than those prescribed or required for medical reasons: No Have you been hit, kicked, punched, or otherwise hurt by someone within the past year? If so, by whom?: No Are you DNR?: No Advance Directives: No Advance Directives Information Provided: Yes Advance Directives on File: No Recently lost weight without trying: No Nutrition Risks: No Nutritional Risk Current occupational status: unemployed Meds Allergies Allergy/AdvReac Type Severity Reaction Status Date / Time amoxicillin Allergy Rash Verified 10/07/23 09:39 cortisone AdvReac heart Verified 10/07/23 09:39 palpation diphenhydramine AdvReac jittery Verified 10/07/23 09:39 [From Leda] Home Medications Medication Instructions Recorded Confirmed Last Taken Type simvastatin 20 mg tablet 20 mg PO BEDTIME 06/07/23 10/07/23 10/06/23 History Exam Airway Mallampati Class: II TM Dist: >3cm Neck ROM: Full Heart: rrr Lungs: cta Assessment and Plan Assessment Anesthesia Assessment: Anesthesia Plan Discussed Final Anesthetic Review Family History of Problems with Anesthesia: No History of Problems with Anesthesia: No NPO: Yes ASA Class: II Final Preanesthetic Review: Anes Risks/Benef Reviewed Patient Risk: Intermediate Procedure Risk: Intermediate Anesthetic Plan Anesthetic Plan: GA and Agree w/ Assess. and Plan Disposition: Standard PACU
[2023-10-07] VITALS (10 sets, daily range): BP systolic 125–140; BP diastolic 57–79; PULSE 50–74; RESP 16–18; TEMP 36.4–36.9; O2SAT 100; BMI 22.0
[2023-10-07] MEDS: Lactated Ringers 1,000 ML 100 ML IVCONT (09:52)
[2023-10-07] MEDS: Scopolamine 1.5 MG PATCH.TD.3 TRANSDERMA (09:52)
--- NOTE | 2023-10-07 13:21 | P.OP_ITS ---
Operative Note Operative Note Date of Service: 10/07/23 Narrative: After the patient was identified as Chuyita Petersen and her right knee was initialed by myself they were brought to the operating room where general anesthesia was induced by the anesthesiologist in routine fashion. The patient was given 2 g of IV Ancef for infection prophylaxis. A formal time-out was completed. The patient's right lower extremity was prepped and draped in sterile fashion. Marcaine with epinephrine was injected into the planned incision sites as well as their right knee joint. A # 11 scalpel blade was used to make an anterolateral portal 1 cm proximal to the joint line and 1 cm lateral to the patellar tendon. Blunt trocar technique was used into the suprapatellar pouch with the knee in extension. Diagnostic arthroscopy showed multiple bands of thickened plica which would be excised at the end of the procedure. There were no loose bodies or abnormalities found in either the medial or lateral gutters. There were diffuse grades 2 and 3 degenerative changes of the undersurface of the patella as well as grade 2 degenerative changes of the trochlear groove. The patient's knee was flexed to 45 degrees and a valgus force was placed upon it. The medial compartment was entered. An anteromedial portal was made 1 cm proximal to the joint line and 1 cm medial to the patellar tendon. Probing of the medial meniscus showed a radial tear of the posterior horn. A partial medial meniscectomy was performed using the arthroscopic shaver. Following the partial meniscectomy the remainder of the meniscus tissue was stable. There were diffuse grades 3 and 4 degenerative changes of the me dial femoral condyle as well as diffuse grades 2 and 3 degenerative changes of the medial tibial plateau. The articular surface of the medial femoral condyle was made smooth using the arthroscopic shaver. The articular surface of the medial tibial plateau was already smooth so no chondroplasty was indicated. The patient's knee was then placed into a neutral position. There was no injury to the anterior cruciate ligament. The patient's knee was then placed into the figure of 4 position and the lateral compartment was entered. There were minimal degenerative changes of the lateral femoral condyle and lateral tibial plateau. There was a radial tear of the anterior horn the lateral meniscus. Thus, a partial lateral meniscectomy was performed using the arthroscopic shaver. Following the partial meniscectomy the remainder of the meniscus tissue was stable. The patient's knee was once again brought into extension and the suprapatellar pouch was entered. The arthroscopic shaver and the ArthroCare Wand were used to excise the thickened bands of plica. The undersurface of the patella was then made smooth using the arthroscopic shaver. The articular surface of the trochlear groove was already smooth so no chondroplasty was indicated. The knee joint was irrigated and then drained. All arthroscopic instruments were removed. The 2 portals were closed with 3-0 nylon interrupted suture. The knee joint was injected with Marcaine. Dry sterile dressing and Neil bandages were placed over the patient's knee. The patient was woken and expand the operating room. They were transferred to the recovery room in stable condition.
--- NOTE | 2023-10-07 13:21 | PM.OP ---
Brief Operative Note Date of Service: 10/07/23 Pre-op diagnosis: Right knee medial meniscus tear, right knee lateral meniscus tear Post-op diagnosis: same Procedure: Right knee diagnostic arthroscopy with right knee arthroscopic partial medial and lateral meniscectomies Implants: none Surgeon: Jean Blanc MD Anesthesia: GLMA Was an [employer] used for this Procedure?: No Estimated blood loss (mL): 10 Pathology: none sent Condition: stable Disposition: PACU
[2023-10-07] MEDS: oxyCODONE HCl Immed Release 5 MG TABLET PO (13:37)
[2023-10-07] MEDS: fentaNYL citrate/PF 100 MCG/2 ML VIAL 25 MCG IVPUSH ×2 (13:38→13:43)
== END 2023-10-07 15:07 | disposition home or self-care (01) ==
PROVIDERS: PCP Internal Medicine; Visit Provider Orthopaedic Surgery
PROC: (CPT 29870; principal; 2023-10-07 11:20)
DX: S83.241A Other tear of medial meniscus, current injury, right knee, initial encounter (principal); S83.281A Other tear of lateral meniscus, current injury, right knee, initial encounter; M67.51 Plica syndrome, right knee; M23.51 Chronic instability of knee, right knee; M17.11 Unilateral primary osteoarthritis, right knee; E78.5 Hyperlipidemia, unspecified; X58.XXXA Exposure to other specified factors, initial encounter; Y93.9 Activity, unspecified; Y92.9 Unspecified place or not applicable; Y99.9 Unspecified external cause status; R06.83 Snoring; F41.8 Other specified anxiety disorders; Z85.828 Personal history of other malignant neoplasm of skin; Z79.899 Other long term (current) drug therapy; Z88.1 Allergy status to other antibiotic agents; Z88.8 Allergy status to other drugs, medicaments and biological substances; Z98.890 Other specified postprocedural states
CPT/HCPCS: 29880; J0131; J0171; J0690; J1100; J1885; J2405; J2704; J2795; J3010

== ENCOUNTER → 2023-10-07 09:25 | Outpatient (BNV) | payer BC, SELFPAY | PROVIDERS: PCP Internal Medicine; Visit Provider Orthopaedic Surgery | DX: S83.281A Other tear of lateral meniscus, current injury, right knee, initial encounter (principal); S83.241A Other tear of medial meniscus, current injury, right knee, initial encounter | CPT/HCPCS: 29880 ==

== ENCOUNTER 2023-10-20 12:20 | Outpatient (AMB) | payer BC, SELFPAY ==
--- NOTE | 2023-10-20 12:38 | A.OFFVIS_ITS ---
Intake Intake Visit Reasons: PO-Rt Knee 10/07/23 Intake Note: Chuyita a 62 year old female presents today for a post operative right knee , DOS 10/07/23 Patient reports twinges located on the top and bottom of her knee cap however states she is doing well. Allergies amoxicillin Allergy (Verified 10/20/23 12:42) Rash cortisone Adverse Reaction (Verified 10/20/23 12:42) heart palpation diphenhydramine [From Benadryl] Adverse Reaction (Verified 10/20/23 12:42) jittery HPI PO-Rt Knee 10/07/23 HPI Details 62-year-old female who returns to the [facility] today for post-op right knee , 10/07/[address] Blanc. She states she has twinges at the top and bottom of her patella but is doing well overall. Her symptoms are aggravated with prolonged sitting. She has no other concerns today. [facility] Medical History PONV (postoperative nausea and vomiting) History of Mohs micrographic surgery for skin cancer Hx of skin cancer, basal cell Arthritis Low back pain Acid reflux Anxiety Snores Personal history of cardiac murmur Hyperlipidemia Arthritis Surgical History Hx of lymph node excision History of ear surgery Hx of inguinal hernia repair Hx of hysterectomy Hx of nasal septoplasty Social History Household Members: Spouse Housing: House Are you a primary critical care transport nurse to a significant other at home: No Do you presently have visiting nurse or other home services: No Patient Tobacco Use Status: Never used Tobacco Current occupational status: unemployed Review of Systems Const All systems reviewed & are unremarkable except as noted in HPI and below Physical Exam Extrem Other: Right knee Incision clean, dry and intact. No erythema or drainage. She has mild joint effusion. ROM is 0-95 degrees. Calf supple, nontender. NVI. Results Reviewed Results Reviewed: Date of Service: 10/07/23 Pre-op diagnosis: Right knee medial meniscus tear, right knee lateral meniscus tear Post-op diagnosis: same Procedure: Right knee diagnostic arthroscopy with right knee arthroscopic partial medial and lateral meniscectomies Implants: none Surgeon: Jean Blanc MD Assessment & Plan Assessment & Plan (1) S/P right knee arthroscopy: Code(s): Z98.890 - Other specified postprocedural states Plan Sutures removed today, steri strips applied. We did review some limitations over the next 4-6 weeks which include avoiding any type of deep bending, kneeling, squatting or pivoting. She can perform low impact exercises like recumbent bike or walking on even pavement. I did put on an order of physical therapy in the office today and I would like to see her back in [address] Blanc, sooner if needed. Orders: Orders PT Evaluation and Treatment Today Z98.890 - Other specified postprocedural states Patient Instructions: Scribed for Rohan Farias PA-C, by German Sepulveda director of graduate medical education, on 10/20/2023 at 12:30 PM EST. I, Rohan Farias PA-C, have personally reviewed and agree with the information entered by the scribe. Coding Level of Care Code Global (73818) Diagnoses S/P right knee arthroscopy Z98.890
== END 2023-10-20 13:10 | disposition home or self-care (01) ==
PROVIDERS: PCP Internal Medicine; Visit Provider Physician Assistant
DX: Z98.890 Other specified postprocedural states (principal)
CPT/HCPCS: 99024

== ENCOUNTER → 2023-10-20 12:20 | Outpatient (BNVA) | payer BC, SELFPAY | PROVIDERS: PCP Internal Medicine; Visit Provider Physician Assistant ==

== ENCOUNTER 2023-11-17 11:25 | Outpatient (AMB) | payer BC, SELFPAY ==
--- NOTE | 2023-11-17 11:41 | A.OFFVIS_ITS ---
Intake Vital Signs 11/17/23 11:50 Height 5 ft 2 in Weight 117 lb BMI 21.4 Intake Visit Reasons: PO-Rt Knee 10/07/23 Intake Note: Chuyita is a 62 year old female who presents for her post operative appointment s/p Right knee 10/07/2023 . Patient reports she is doing better the stairs are still a little hard and she is using ice as needed. 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 She denies any fevers or chills. Allergies amoxicillin Allergy (Verified 11/17/23 11:54) Rash cortisone Adverse Reaction (Verified 11/17/23 11:54) heart palpation diphenhydramine [From Benadryl] Adverse Reaction (Verified 11/17/23 11:54) jittery Medication List - Last Reconciled 11/17/23 by Jean Blanc MD simvastatin 20 mg PO BEDTIME PFSH Medical History PONV (postoperative nausea and vomiting) History of Mohs micrographic surgery for skin cancer Hx of skin cancer, basal cell Arthritis Low back pain Acid reflux Anxiety Snores Personal history of cardiac murmur Hyperlipidemia Arthritis Surgical History Hx of lymph node excision History of ear surgery Hx of inguinal hernia repair Hx of hysterectomy Hx of nasal septoplasty Social History Household Members: Spouse Housing: House Are you a primary director long term care to a significant other at home: No Do you presently have visiting nurse or other home services: No Patient Tobacco Use Status: Never used Tobacco Current occupational status: unemployed Physical Exam Vital Signs: BMI result Body Mass Index 21.4 Extrem Other: Physical examination of the patient's right knee shows that the surgical incisions are well healed, minimal swelling, minimal crepitus with range of motion, no instability Assessment & Plan Assessment & Plan (1) Right knee pain: Code(s): M25.561 - Pain in right knee Plan Mrs. Petersen continues to do well after undergoing right knee arthroscopic surgery on 10/07/2023. She will gradually progress to activities as tolerated. Activity modifications were discussed at length with the patient. She will contact me prior to her follow-up appointment in 2 months should any questions or concerns arise. Feel free to call me at any time should questions regarding her orthopedic management arise. Coding Level of Care Code Global (41783) Diagnoses Right knee pain M25.561
[2023-11-17 11:50] VITALS: BMI 21.4
== END 2023-11-17 12:32 | disposition home or self-care (01) ==
PROVIDERS: PCP Internal Medicine; Visit Provider Orthopaedic Surgery
DX: M25.561 Pain in right knee (principal)
CPT/HCPCS: 99024

== ENCOUNTER → 2023-11-17 11:25 | Outpatient (BNVA) | payer BC, SELFPAY | PROVIDERS: PCP Internal Medicine; Visit Provider Orthopaedic Surgery ==

== ENCOUNTER 2023-12-12 14:00 | Outpatient (RCR) | payer BC, SELFPAY ==
--- NOTE | 2023-10-25 17:55 | MHC.PT.EP ---
[facility] [place] Office [place] Office [place] Office [address] Shanda Ivy 140 [facility] [phone] F: [phone] F: [phone] F: [phone] F: [phone] Physical Therapy Plan of Care Date of Evaluation: 10/25/23 Date of Surgery: 10/07/23 Diagnosis: s/p R knee As, LMT, and MMT performed on 10/07/[address] Blanc Assessment: Chuyita is a pleasant 62 yo female presenting to skilled physical therapy evaluation and treatment s/p R knee As, LMT, and MMT performed on 10/07/[address] Blanc. Pt has the most difficulty with prolonged positioning including sleeping, standing, and ambulation of longer distances. She presents to PT with expected impairments of with mild discomfort, edema, decreased R knee PROM, and decreased R LE strength. Upon assessment, pt able to perform proper R quad activation with superior patellar tracking in supine, however demonstrates compensations in weightbearing positions/activities. She demonstrates antalgic gait with decreased R heel strike, which is limiting functional ROM. Patient would benefit from skilled PT to progress through post-op protocol to improve functional mobility with proper mechanics and return to desired PLOF. Frequency and Duration: The patient will be seen 2x/wk for 2 weeks, 1x/wk for 2 weeks Short Term Goals: Pt will demonstrate independence with HEP through teach-back indicating good compliance with PT Pt will increase R knee flexion PROM by 10 deg to show improved mobility Pt will demonstrate ability to perform SLR with proper quad activation consistently Waistline Joiner Goals: Pt will achieve 5/5 strength in R knee to improve independence with walking on uneven surfaces Pt will demonstrates full R knee PROM/AROM to allow normal gait mechanics Pt will demonstrate ability to navigate 1 flight of stairs with reciprocal pattern with proper mechanics Pt will demonstrate improvements in function as evidenced by statistically significant improvement in Lower Extremity Functional Index Treatment Plan: Modalities to reduce pain, spasms and effusion. Manual therapy to restore motion and function. Therapeutic exercise to improve strength and flexibility. Neuromuscular re-education for posture and balance. Therapeutic activities to return to functional activities of daily living. Electronically signed by: Jes Patruno, PT, DPT Please sign and return to therapist. Thank you for your referral.
--- NOTE | 2023-12-13 11:49 | MHC.PT.EP ---
[facility] [place] Office [place] Office [place] Office [address] Shanda Ivy 140 [facility] [phone] F: [phone] F: [phone] F: [phone] F: [phone] Physical Therapy Plan of Care Date of Evaluation: 10/25/23 Date of Surgery: 10/07/23 Diagnosis: s/p R knee As, LMT, and MMT performed on 10/07/[address] Blanc Assessment: Chuyita is a pleasant 62 yo female presenting to skilled physical therapy evaluation and treatment s/p R knee As, LMT, and MMT performed on 10/07/[address] Blanc. Pt has the most difficulty with prolonged positioning including sleeping, standing, and ambulation of longer distances. She presents to PT with expected impairments of with mild discomfort, edema, decreased R knee PROM, and decreased R LE strength. Upon assessment, pt able to perform proper R quad activation with superior patellar tracking in supine, however demonstrates compensations in weightbearing positions/activities. She demonstrates antalgic gait with decreased R heel strike, which is limiting functional ROM. Patient would benefit from skilled PT to progress through post-op protocol to improve functional mobility with proper mechanics and return to desired PLOF. Frequency and Duration: The patient will be seen 2x/wk for 2 weeks, 1x/wk for 2 weeks Short Term Goals: Pt will demonstrate independence with HEP through teach-back indicating good compliance with PT - MET Pt will increase R knee flexion PROM by 10 deg to show improved mobility - MET Pt will demonstrate ability to perform SLR with proper quad activation consistently - MET Group Home Goals: Pt will achieve 5/5 strength in R knee to improve independence with walking on uneven surfaces - MET Pt will demonstrates full R knee PROM/AROM to allow normal gait mechanics - MET Pt will demonstrate ability to navigate 1 flight of stairs with reciprocal pattern with proper mechanics - MET Pt will demonstrate improvements in function as evidenced by statistically significant improvement in LEFI - MET Treatment Plan: Modalities to reduce pain, spasms and effusion. Manual therapy to restore motion and function. Therapeutic exercise to improve strength and flexibility. Neuromuscular re-education for posture and balance. Therapeutic activities to return to functional activities of daily living. Electronically signed by: Jes Davenport, PT, DPT Please sign and return to therapist. Thank you for your referral.
== END 2023-12-13 11:49 | disposition home or self-care (01) ==
LOC: HO.PT 14:00
PROVIDERS: PCP Internal Medicine; Visit Provider Physician Assistant
DX: Z98.890 Other specified postprocedural states (principal)
CPT/HCPCS: 97110; 97112; 97162; 97164

== ENCOUNTER 2024-01-05 10:59 | Outpatient (AMB) | payer BC, SELFPAY ==
[2024-01-05 11:25] VITALS: BMI 21.4
--- NOTE | 2024-01-05 11:25 | A.OFFVIS_ITS ---
Intake Vital Signs 01/05/24 11:25 Height 5 ft 2 in Weight 117 lb BMI 21.4 Intake Visit Reasons: OV-Rt Knee follow up Intake Note: Chuyita is a 63 year old female who presents for his post operative appointment s/p Right knee 10/07/2023 DRVamsi Patient reports she is doing well she is still getting a little discomfort in the inside of the knee when she over does it. 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 She does not take any medicines for discomfort. She denies any locking or giving way. Allergies amoxicillin Allergy (Verified 01/05/24 11:30) Rash cortisone Adverse Reaction (Verified 01/05/24 11:30) heart palpation diphenhydramine [From Benadryl] Adverse Reaction (Verified 01/05/24 11:30) jittery Medication List - Last Reconciled 01/05/24 by Jean Blanc MD simvastatin 20 mg PO BEDTIME PFSH Medical History PONV (postoperative nausea and vomiting) History of Mohs micrographic surgery for skin cancer Hx of skin cancer, basal cell Arthritis Low back pain Acid reflux Anxiety Snores Personal history of cardiac murmur Hyperlipidemia Arthritis Surgical History Hx of right knee surgery (10/07/23) Hx of lymph node excision History of ear surgery Hx of inguinal hernia repair Hx of hysterectomy Hx of nasal septoplasty Social History Household Members: Spouse Housing: House Are you a primary hearing care practitioner to a significant other at home: No Do you presently have visiting nurse or other home services: No Patient Tobacco Use Status: Never used Tobacco Current occupational status: unemployed Physical Exam Vital Signs: BMI result Body Mass Index 21.4 Const Other: Well-nourished well-developed very friendly female awake alert and oriented x3 in no acute distress Extrem Other: Bilateral lower extremity examination shows good capillary refill, no skin lesions noted, normal sensation light touch Right knee examination shows a minimal effusion, minimal crepitus with range of motion, no discomfort with range of motion, no instability Assessment & Plan Assessment & Plan (1) Right knee pain: Code(s): M25.561 - Pain in right knee Plan Mrs. Petersen continues to do well after undergoing right knee arthroscopic surgery on 10/07/2023. She does have residual discomfort due to degenerative joint disease. I had a lengthy discussion with the patient regarding the treatment options. At this point the patient's symptoms are tolerable to her. She will continue with her exercise program. She will follow up with me on an as-needed basis should her symptoms worsen in any way. Feel free to call me at any time should questions regarding her orthopedic management arise. I spent 22 minutes in reviewing the patient's records and imaging studies, seeing the patient and documenting in the medical record. Coding Level of Care Code Est Pt Level 2 (82429) Diagnoses Right knee pain M25.561
== END 2024-01-05 11:55 | disposition home or self-care (01) ==
PROVIDERS: PCP Internal Medicine; Visit Provider Orthopaedic Surgery
DX: S83.241D Other tear of medial meniscus, current injury, right knee, subsequent encounter (principal); S83.281D Other tear of lateral meniscus, current injury, right knee, subsequent encounter
CPT/HCPCS: 99024

== ENCOUNTER → 2024-01-05 10:59 | Outpatient (BNVA) | payer BC, SELFPAY | PROVIDERS: PCP Internal Medicine; Visit Provider Orthopaedic Surgery ==

== ENCOUNTER 2024-05-28 13:05 | Outpatient (REF) | payer BC, SELFPAY ==
--- NOTE | ~2024-05-28 | MM_ITS ---
EXAMINATION: MM SCREENING DIGITAL BREAST TOMOSYNTHESIS, BILATERAL CLINICAL INFORMATION: Screening. Asymptomatic. COMPARISON: Mammography: This study is compared with prior exams dating back to 2019. TECHNIQUE: Digital breast tomosynthesis is performed in both the craniocaudal and mediolateral oblique views along with computer-aided detection (CAD). Synthesized 2D images are generated from the tomosynthesis. FINDINGS: There are scattered areas of fibroglandular density (ACR BI-RADS breast composition Category b). There are no significant masses, abnormal calcifications, or other abnormalities. Scattered, coarse benign calcifications are present in each breast. MM/MM tomosynthesis screening BI IMPRESSION: No mammographic evidence of malignancy. ASSESSMENT: BI-RADS BI-RADS 2 - Benign Findings RECOMMENDATION: Routine annual mammography screening. 1 year F/U This examination should not preclude the clinical evaluation of a suspicious palpable abnormality. This patient's information was entered into a reminder system with a target due date for their next mammogram. Electronically signed by: Kathy Ochoa MD 06/25/2024 10:08 AM EDT
== END 2024-05-28 13:06 | disposition home or self-care (01) ==
LOC: HO.MAMMO 13:05
PROVIDERS: PCP Internal Medicine; Visit Provider Internal Medicine
DX: Z12.31 Encounter for screening mammogram for malignant neoplasm of breast (principal)
CPT/HCPCS: 77063; 77067

== ENCOUNTER → 2024-05-28 13:15 | Outpatient (BNV) | payer BC, SELFPAY | PROVIDERS: PCP Internal Medicine; Visit Provider Radiology Diagnostic Radiology | DX: Z12.31 Encounter for screening mammogram for malignant neoplasm of breast (principal) | CPT/HCPCS: 77063; 77067 ==

== ENCOUNTER 2024-06-28 13:56 | Outpatient (REF) | payer BC, SELFPAY ==
--- NOTE | ~2024-06-28 | US_ITS ---
EXAMINATION: US THYROID CLINICAL INFORMATION: Nontoxic multinodular goiter. COMPARISON: Ultrasound thyroid 07/07/2023 and 06/21/2022. CT neck with contrast 08/03/2011. TECHNIQUE: Linear transducer grayscale and color Doppler examination with attention to the region of the thyroid. FINDINGS: SIZE: Measurements of the thyroid lobes and nodules are given in sagittal, anteroposterior and transverse dimensions respectively. Right Thyroid Lobe: 5.5 x 1.6 x 2.2 cm, volume 10.1 mL. Previously 5.1 x 1.8 x 2.1 cm, volume 10.1 mL. Parenchyma: The gland echotexture is heterogeneous. Thyroid vascularity is increased. Left Thyroid Lobe: 5.8 x 1.9 x 2.0 cm, volume 11.5 mL. Previously 5.5 x 2.0 x 2.0 cm, volume 11.5 mL. Parenchyma: The gland echotexture is heterogeneous. Thyroid vascularity is increased. Isthmus: 0.6 cm in maximum AP dimension. Previously 0.4 cm. Estimated total number of nodules greater than or equal to 1 cm: 0. Furniture Maker nodules are described as follows: 1. Location: Right isthmus. Size: 0.7 x 0.3 x 0.5 cm, volume 0.06 mL. Previously: 0.5 x 0.3 x 0.5 cm, volume 0.04 mL. Nodule characteristics: Composition: Solid (2). Echogenicity: Isoechoic (1). Shape: Not taller than wide (0). Margins: Smooth (0). Echogenic Foci: None (0). ACR TI-RADS total points: 3 Previous: 3 ACR TI-RADS category: 3 Previous: 3 Significant change in size (>/= 20% in 2 dimensions and minimal increase of 2 mm or 50% or greater increase in volume): Yes Change in features: No Change in ACR TI-RADS risk category: No 2. Location: Right mid. Size: 0.5 x 0.3 x 0.6 cm, volume 0.05 mL. Previously: 0.5 x 0.3 x 0.5 cm, volume 0.04 mL. Nodule characteristics: Composition: Solid/almost completely solid (2). Echogenicity: Isoechoic (1). Shape: Not taller than wide (0). Margins: Smooth (0). Echogenic Foci: None (0). ACR TI-RADS total points: 3 Previous: 6 ACR TI-RADS category: 3 Previous: 4 Significant change in size (>/= 20% in 2 dimensions and minimal increase of 2 mm or 50% or greater increase in volume): No Change in features: Yes Change in ACR TI-RADS risk category: Yes 3. Location: Left mid. Size: 0.7 x 0.5 x 0.6 cm, volume 0.1 mL. Previously: 0.6 x 0.4 x 0.6 cm, volume 0.06 mL. Nodule characteristics: Composition: Mixed cystic and solid (1). Echogenicity: Isoechoic (1). Shape: Not taller than wide (0). Margins: Smooth (0). Echogenic Foci: None (0). ACR TI-RADS total points: 2 Previous: 5 ACR TI-RADS category: 2 Previous: 4 Significant change in size (>/= 20% in 2 dimensions and minimal increase of 2 mm or 50% or greater increase in volume): No Change in features: Yes Change in ACR TI-RADS risk category: Yes 4. Location: Left lower pole. Size: 0.7 x 0.4 x 0.8 cm, volume 0.1 mL. Previously: 0.8 x 0.4 x 0.7 cm, volume 0.1 mL. Nodule characteristics: Composition: Spongiform (0). ACR TI-RADS total points: 0 Previous: 0 ACR TI-RADS category: 1 Previous: 1 Significant change in size (>/= 20% in 2 dimensions and minimal increase of 2 mm or 50% or greater increase in volume): No Change in features: No Change in ACR TI-RADS risk category: No NODES: No lymphadenopathy is seen in the tissue surrounding the thyroid gland. US/US thyroid IMPRESSION: 1. Small bilateral thyroid nodules are seen, as detailed. No specific imaging follow-up is recommended. 2. There is a mild goiter. 3. There is heterogeneous thyroid echotexture, which can be associated with thyroiditis. ACR TI-RADS RECOMMENDATION REFERENCE: Ultrasound-guided fine-needle aspiration, follow up ultrasound, no further followup. * TR1 (0 point) and TR2 (2 points): No FNA or followup * TR3 (3 points): FNA if more than or equal to 2.5 cm in maximum dimension, follow up ultrasound in 1, 3 and 5 years if 1.5 to 2.4 cm in maximum dimension. * TR4 (4-6 points): FNA if more than or equal to 1.5 cm in maximum dimension, follow up ultrasound in 1, 2, 3 and 5 years if 1 to 1.4 cm in maximum dimension. * TR5 (more than or equal to 7 points): FNA if more than or equal to 1 cm in maximum dimension, follow up ultrasound every year for 5 years if 0.5 to 0.9 cm in maximum dimension. * TR3, TR4 or TR5 nodules that are below the size threshold for follow up receive no followup. Electronically signed by: Rodolfo Gonsalez MD 07/05/2024 05:59 PM EDT RP
== END 2024-06-28 13:57 | disposition home or self-care (01) ==
LOC: HO.US 13:56
PROVIDERS: PCP Internal Medicine; Visit Provider Internal Medicine
DX: E04.2 Nontoxic multinodular goiter (principal)
CPT/HCPCS: 76536

== ENCOUNTER 2024-07-12 08:55 | Outpatient (REF) | payer BC, SELFPAY ==
[2024-07-12 09:16] LABS: MANUAL DIFF FLAG NO
[2024-07-12 09:47] LABS: Basophils Percent Auto 0.7 % (0-2); Eosinophils Absolute Auto 0.1 X10*3/uL (0.0-0.4); Hemoglobin 15.3 g/dl (12.0-16.0); Imm Gran Abs Auto 0.01 X10*3/uL (0.00-0.03); Imm Gran Pct Auto 0.2 % (0.0-0.4); Lymphocytes Percent Auto 34.4 % (20-40); Mean Corpuscular HGB Conc 33.3 g/dl (31.0-35.0); Mean Corpuscular Hemoglobin 32.6 pg (27.0-33.0); Mean Corpuscular Volume 97.9 fL (80.0-98.0); Mean Platelet Volume 9.3 fL (9.4-12.3); Monocytes Absolute Auto 0.6 X10*3/uL (0.1-1.2); Monocytes Percent Auto 10.3 % (2-11); Neutrophils Absolute Auto 3.1 x10*3/uL (2.0-8.3); Neutrophils Percent Auto 53.4 % (45-73); Platelet Count 260 X10*3/uL (160-400); Red Cell Distribution Width 13.2 % (11.0-16.0); White Blood Count 5.8 X10*3/uL (4.8-10.8)
[2024-07-12 10:23] LABS: Alanine Aminotransferase 20 U/L (0-31); Alkaline Phosphatase 96 U/L (39-117); Anion Gap 9 (12-20); Aspartate Amino Transferase 22 U/L (5-31); Bilirubin Total 0.6 mg/dL (0.0-1.0); Blood Urea Nitrogen 18 mg/dL (9-16); Calcium 9.4 mg/dL (8.4-10.2); Carbon Dioxide 27 mmol/L (22-29); Chloride 107 mmol/L (96-108); Cholesterol 212 mg/dL (<200); Estimated Glomerular Filt Rate > 60; Glucose Fasting 95 mg/dL (60-99); HDL Cholesterol 96 mg/dL (>40); LDL Cholesterol Calculated 103 mg/dL (<100); Potassium 4.2 mmol/L (3.3-5.1); Sodium 139 mmol/L (135-145); Total Protein 6.8 g/dL (6.5-8.0); Triglycerides 66 mg/dL (<150)
[2024-07-12 10:42] LABS: Free T4 (Free Thyroxine) 0.98 ng/dL (0.71-1.85); Thyroid Stimulating Hormone 1.16 uIU/mL (0.32-4.0)
== END 2024-07-12 08:56 | disposition home or self-care (01) ==
LOC: HO.LAB 08:55
PROVIDERS: PCP Internal Medicine; Visit Provider Internal Medicine
DX: E78.00 Pure hypercholesterolemia, unspecified (principal); E04.9 Nontoxic goiter, unspecified
CPT/HCPCS: 36415; 80053; 80061; 84439; 84443; 85025

== ENCOUNTER 2025-07-04 09:05 | Outpatient (AMB) | payer BC, SELFPAY ==
--- NOTE | 2025-07-04 08:03 | MHC.PC.OV ---
Vital Signs 07/04/25 09:10 Height 5 ft 2 in Weight 123 lb BMI 22.5 BP 122/74 Blood Pressure Location Lt brachial Position Sitting Pulse 63 Pulse Source Pulse Oximeter Temp 97.5 F Temp Source Temporal Artery Scan Pulse Oximetry (%) 97 Oxygen Delivery Method Room Air Intake Visit Reasons: Annual Tools And Parts Attendant Required: No Accompanied by: Self / Same As Patient Allergies amoxicillin Allergy (Verified 07/04/25 09:12) Rash cortisone Adverse Reaction (Verified 07/04/25 09:12) heart palpation diphenhydramine (From Benadryl) Adverse Reaction (Verified 07/04/25 09:12) jittery Medication List - Last Reconciled 07/04/25 by YELENA Kimble simvastatin 20 mg PO QPM Tobacco use date assessed: 07/04/25 Fall risk assessment: 2 + Falls in past year Last assessed Fall Risk: 07/04/25 Dental Screening Dental Screen Date: 07/04/25 Did you have a dental visit in the last 12 months?: Yes Did you have a dental problem in the last 6 months where you did not have access to dental care?: No HPI HPI Comments History of Present Illness Details The patient is a 64-year-old female with HLD, anxiety, Thyroid nodules, GERD, LBP and bilateral knee pain presenting for a routine check-up and management of chronic conditions. The patient has a history of osteopenia, identified during a bone density test conducted two years ago, which showed thinning of the bones. She is considering repeating the test next year in conjunction with her mammogram. The patient reports severe arthritis in her knee, which has been problematic following meniscus surgery on both sides. She experiences significant pain and has tried topical treatments, but discontinued one due to adverse effects, including visual disturbances. The patient has a lipoma in her abdominal wall RUQ, which she describes as a small, pea-sized lump that becomes more noticeable with heavy lifting. She has a history of a hernia in the groin area and experiences pain when lifting heavy objects. The patient also has a ganglion cyst on the bottom of her foot, which fluctuates in size and occasionally causes discomfort. The cyst is suspected to be due to inflammation around a nerve, and surgical intervention is considered only if it becomes persistently painful. Thyroid nodules were identified a year ago, and the patient is due for a follow-up ultrasound to monitor these nodules. She is also due for labs. The patient reports hearing loss in one ear following surgery earlier this year. She denies any current issues with vision or hearing in the other ear. The patient experiences difficulty sleeping, which she attributes to age-related changes in her sleep cycle. She is considering melatonin supplementation to help regulate her sleep pattern. Patient was informed and verbally consented to the use of an ambient scribe for clinic note documentation during this visit. [facility] Medical History (Updated 07/08/25 @ 03:01 by YELENA Kimble) Acid reflux Anxiety Arthritis Arthritis Health care maintenance History of Mohs micrographic surgery for skin cancer Hx of skin cancer, basal cell Hyperlipidemia Low back pain Mass of anterior abdominal wall Personal history of cardiac murmur PONV (postoperative nausea and vomiting) Snores Thyroid nodule Surgical History History of ear surgery Hx of hysterectomy Hx of inguinal hernia repair Hx of lymph node excision Hx of nasal septoplasty Hx of right knee surgery (10/07/23) Family History (Updated 07/04/25 @ 09:14 by Dinorah Slater MA) Mother No problems noted. Father No problems noted. Social History Household Members: Spouse Housing: House Are you a primary outdoor emergency care technician to a significant other at home: No Do you presently have visiting nurse or other home services: No Patient Tobacco Use Status: Never used Tobacco e-Cigarette/Vaping Use: Never Used service: No Current occupational status: retired Cognitive needs: No Hearing needs: No Vision needs: Yes (rx glasses) Questionnaire PHQ-9 Over the last 2 weeks, how often have you been bothered by any of the following problems? 1. Little interest or pleasure in doing things: not at all 2. Feeling down, depressed, or hopeless: not at all 3. Trouble falling or staying asleep, or sleeping too much: not at all 4. Feeling tired or having little energy: not at all 5. Poor appetite or overeating: not at all 6. Feeling bad about yourself - or that you are a failure or have let yourself or your family down: not at all 7. Trouble concentrating on things, such as reading the newspaper or watching television: not at all 8. Moving or speaking so slowly that other people could have noticed. Or the opposite - being so fidgety or restless that you have been moving around a lot more than usual: not at all 9. Thoughts that you would be better off or of hurting yourself in some way: not at all Total score: 0 Source: Developed by Drs. Charles Willett, Madelin Saleh, Aquiles Choudhary and colleagues, with an educational karla from [employer].. Thrive Questionnaire Date Thrive assessed: 07/04/25 I am a: Patient Within the past 12 months, did the food you bought not last and you didn't have the money to get more?: Never true Within the past 12 months, did you worry whether your food would run out before you got money to buy more?: Never true Do you have trouble paying for medicines?: No Do you have trouble getting transportation to medical appointments?: No Do you have trouble paying your heating and electricity bill?: No Do you have trouble taking care of your child, family member or friend?: No Do you have trouble with day-to-day activities such as bathing, preparing meals, shopping, managing finances, etc.?: No Are you currently unemployed and looking for a job?: No Are you interested in more education?: No THRIVE Score: 0 AUDIT C Alcohol Use Questionnaire (AUDIT-C) 1. How often do you have a drink containing alcohol?: Never 3. How often do you have six or more drinks on one occasion?: Never Total Score: 0 KENNEDI-7 AMB Questionnaire KENNEDI-7 Date KENNEDI - 7 assessed: 07/04/25 Feeling nervous, anxious, or on edge: 1 = Several days (sometimes anxious) Not being able to stop or control worryin = Not at all Worrying too much about different things: 0 = Not at all Trouble relaxin = Not at all Being so restless that it is hard to sit still: 0 = Not at all Becoming easily annoyed or irritable: 0 = Not at all Feeling afraid as if something awful might happen: 0 = Not at all Total KENNEDI-7 score (0-4 normal; 5-9 mild; 10-14 moderate; 15-21 severe): 1 Source: Developed by Madelin PhilipW. Delfino, Aquiles Choudhary and colleagues, with an educational karla from [employer].. Review of Systems Const Details: CONSTITUTIONAL Negative HEAD/NECK Negative EAR/NOSE/MOUTH/THROAT Reports thyroid nodules, denies other endocrine symptoms Reports hearing loss in one ear, denies other neurological symptoms RESPIRATORY Negative CARDIOVASCULAR Negative GASTROINTESTINAL Negative MUSCULOSKELETAL Reports severe knee pain, denies other joint pain NEUROLOGICAL Negative PSYCHIATRIC Reports difficulty sleeping, denies daytime sleepiness Physical exam (Primary Care) Vital Signs: Last Vital Signs Temp 97.5 F 07/04/25 09:10 Pulse 63 07/04/25 09:10 BP 122/74 07/04/25 09:10 Pulse Ox 97 07/04/25 09:10 Oxygen Delivery Method Room Air 07/04/25 09:10 BMI result Body Mass Index 22.5 GENERAL Well developed, Well nourished, in no apparent distress HEENT Head-Normocephalic Eyes- PERRLA, EOMI, Conjuctiva clear, lids WNL Ears- Canals clear, TMs WNL Mouth/Throat-No lesions, no erythema, no exudate Neck- Supple, No lymphadenopathy, thyroid nodules on both sides RESPIRATORY Normal I:E, Clear to auscultation CARDIOVASCULAR Regular, rate and rhythm, No murmurs or rubs GASTROINTESTINAL Soft, nontender, normal bowel sounds, small rubbery mass in RUQ MUSCULOSKELETAL Back- nontender knees- Full ROM, tender at joint line, no swelling NEUROLOGICAL Gait normal PSYCHIATRIC Oriented to person, place and time Mood and affect WNL Appearance WNL Speech WNL Thought processes WNL Tobacco/Smoking Status: Tobacco use Status Tobacco use date assessed 07/04/25 07/04/25 09:15 Patient Tobacco Use Status Never used Tobacco 07/04/25 08:04 e-Cigarette/Vaping Use Never Used 07/04/25 09:15 PHQ-9: PHQ-9 Score PHQ-9: Total score 0 07/08/25 02:49 Thrive Assessment: Date of Thrive Assessment Date Thrive assessed 07/04/25 07/04/25 08:04 Coding Level of Care Code New Pt New Pt Level 4 (94230) Patient Type New Diagnoses Pure hypercholesterolemia E78.00 Hyperlipidemia type: pure hypercholesterolemia Thyroid nodule E04.1 Mass of anterior abdominal wall R22.2 Health care maintenance Z00.00 Time Spent (min) 30 Comment Time spent on chart review, medication reconciliation, H&P, patient education and orders Assessment & Plan Assessment & Plan (1) Hyperlipidemia: Code(s): E78.5 - Hyperlipidemia, unspecified Category: Medical Qualifiers: Hyperlipidemia type: pure hypercholesterolemia Qualified Code(s): E78.00 - Pure hypercholesterolemia, unspecified Plan: On Simvastatin. Will get labs. Patient will continue current medications. Will monitor. Patient will follow up in 6 months. (2) Thyroid nodule: Code(s): E04.1 - Nontoxic single thyroid nodule Category: Medical Plan: Will get Thyroid US. (3) Mass of anterior abdominal wall: Code(s): R22.2 - Localized swelling, mass and lump, trunk Category: Medical Plan: Will get soft tissue US. (4) Health care maintenance: Code(s): Z00.00 - Encounter for general adult medical examination without abnormal findings Category: Medical Plan: - Colon cancer screening with stool test completed last year - Mammogram scheduled for next year - Bone density test scheduled for next year - Blood work ordered for routine check-up Plan During the visit, we discussed the management of osteopenia with continued calcium and vitamin D supplementation and the plan for a follow-up bone density test next year. We also reviewed the patient's knee arthritis, advising continued physical activity and noting the discontinuation of a topical treatment due to adverse effects. An ultrasound is planned to evaluate the lipoma, and the ganglion cyst will be monitored for potential surgical intervention if it becomes persistently painful. We discussed the need for a follow-up ultrasound for thyroid nodules and acknowledged the patient's hearing loss post-surgery. For insomnia, melatonin supplementation was suggested to help regulate sleep patterns. Orders: Orders Complete Blood Count no Diff 07/04/25 Z00.00 - Encounter for general adult medical examination without abnormal findings Comprehensive Met. Panel 07/04/25 Z79.899 - Other mcfp (current) drug therapy TSH reflex Free T4 07/04/25 R22.2 - Localized swelling, mass and lump, trunk, Z00.00 - Encounter for general adult medical examination without abnormal findings US thyroid 07/04/25 E04.1 - Nontoxic single thyroid nodule US abdomen limited 07/04/25 R22.2 - Localized swelling, mass and lump, trunk Lipid Panel 07/04/25 E78.5 - Hyperlipidemia, unspecified Medications: Changed From simvastatin 20 mg PO BEDTIME 90 tabs 1RF To simvastatin 20 mg PO QPM 90 tabs 2RF Patient Instructions: - Continue taking calcium and vitamin D supplements as directed. - Engage in regular physical activity to manage knee arthritis. - Monitor the size and discomfort of the ganglion cyst and report any persistent pain. - Schedule follow-up ultrasounds for thyroid nodules and lipoma evaluation. - Consider melatonin supplementation to help with sleep difficulties. - Follow up in six months for routine check-up and review of current conditions.
[2025-07-04 09:10] VITALS: BP 122/74; PULSE 63; TEMP 36.4; O2SAT 97; BMI 22.5
--- OUTSIDE RECORDS SUMMARY | 2025-07-04 09:51 | XMS_ITS | Patient Health Record ---
Author Organization [facility] Address [address] [place] [id number] Care Team Providers Care Budget Record Clerk Name Role Phone Tika (RETIRED) Flaco DOLL Primary Care Provide r Unavailable Bruce Mehta Unavailable [phone] Teo DOLL, Michael Unavailable Unavailable Reason For Referral No Information Medications Medication SIG (Take, Route, Frequency, Duration) Notes Start Date End Date Status Simvastatin Active Problems Problem Type SNOMED Code ICD Code Onset Dates Problem Status W/U Status Risk Notes Problem Hereditary hemochromatosis (66598492) Hereditary hemochromatosis (275.01) Active confirmed Plan Of Treatment No Information Insurance Providers Payer Name Payer Address Payer Phone Subscriber Number Group Number Insured Name Patient Relationship to Insured Coverage Start Date Coverage End Date [facility] [address] [place], [place] [id number] WILIAM PARKS Self - patient is the insured Medical (General) History Medical History History ICD Code hyperlipidemia acne rosacea skin cancers removed and replaced Denies AL,DM,CVA,Lung disease,renal dise ase Surgical History Surgery Date(Month/Year) facial skin cancer nose surgery eardrum surgery hernia hysterectomy benign lymph node removed from her groin region
--- OUTSIDE RECORDS SUMMARY | 2025-07-04 09:51 | XMS_ITS | Clinical Summary ---
Author Organization [facility] Address [address] [facility] [address] [place] [phone] Phone Care Team Providers Care Aquarist Name Role Phone Flaco Villela MD Primary Care Provider Allergies Active Allergy Reactions Criticality Noted Date Comments Diphenhydramine Hcl 09/14/2020 Chocolate 09/25/2018 Onion 09/25/2018 [place] 09/25/2018 Penicillins Hives 10/17/2021 Perfume 09/25/2018 Medications simvastatin (ZOCOR) 20 MG tablet Take 20 mg by mouth nightly. Active valACYclovir (VALTREX) 1000 MG tablet TAKE TWO PILLS AT FIRST SIGN OF OUTBREAK AND TWO PILLS 12 HOURS LATER (ONE DAY DOSING) 06/17/2020 Active Active Problems No known active problems Immunizations Immunization Administration Dates Next Due Tdap 10/17/2021 Family History Medical History Relation Comments Breast cancer Maternal Grandmother CV disease Mother Diabetes mellitus Mother Prostate cancer Paternal Grandfather CV disease Paternal Grandmother Bipolar disorder Sister Relation Status Comments Father Alive Maternal Grandmother Mother Alive Paternal Grandfather Paternal Grandmother Sister Social History Tobacco Use Types Packs/Day Years Used Date Smoking Tobacco: Former Smokeless Tobacco: Never Alcohol Use Standard Drinks/Week Comments No 0 (1 standard drink = 0.6 oz pur e alcohol) Education Answer Date Recorded Are you interested in more education? Not on edna e 02/04/2023 Are you concerned about learning? Not on file 02/04/2023 No 02/04/2023 No 02/04/2023 Digital Access Answer Date Recorded No 03/07/2023 No 03/07/2023 Reliable internet access at home? Not on file 03/07/2023 Device with a working camera? Not on file Comments No Sex and Gender Information Value Date Recorded Sex Assigned at Not on file Legal Sex Female 9:49 PM EDT Gender Identity Not on file Sexual Orientation Not on file Last Filed Vital Signs Vital Sign Reading Time Taken Comments Blood Pressure 96/63 10/17/2021 4:26 PM EST Pulse 64 10/17/2021 4:26 PM EST Temperature 36.2 C (97.2 F) 10/17/2021 2:31 PM EST Respiratory Rate 16 10/17/2021 4:26 PM EST Oxygen Saturation 99% 10/17/2021 4:26 PM EST Inhaled Oxygen Concentration - - Weight 52.6 kg (116 lb) 12/07/2021 4:02 PM EST Height 157.5 cm (5' 2 ) 12/07/2021 4:02 PM EST Body Mass Index 21.22 12/07/2021 4:02 PM EST Plan of Treatment Health Maintenance Due Date Last Done Comments LIPID PANEL 1959 DEPRESSION SCREENING 1971 SMOKING Hx and SMOKELESS TOB ACCO SCREENING 12/28/1972 HEPATITIS C SCREENING 12/28/1977 HIV ONE-TIME SCREENING (18-6 5 YEARS) 12/28/1977 COLOGUARD 12/28/2004 COLONOSCOPY 12/28/2004 COLORECTAL CANCER SCREENING 12/28/2004 FIT TEST 12/28/2004 FOBT 12/28/2004 SIGMOIDOSCOPY 12/28/2004 VIRTUAL COLONOSCOPY 12/28/2004 PNEUMOCOCCAL VACCINES (50+ y ears) (1 of 1 - PCV) 12/28/2009 ZOSTER VACCINES (1 of 2) 12/28/2009 MAMMOGRAM 10/17/2020 10/17/2018 OSTEOPOROSIS SCREENING INITI AL (ONE-TIME) 12/28/2024 INFLUENZA VACCINE (#1) 2025 COVID-19 VACCINE (2 - 2024-2 6 season) 2025 01/17/2021 Adult Td,Tdap Booster 10/17/2031 10/17/2021 RSV VACCINE (1 - 1-dose 75+ series) 12/28/2034 HEPATITIS A VACCINES Aged Out No long er eligible based on patient's age to complete this topic HIB VACCINES Aged Out No longer eligi ble based on patient's age to complete this topic MENINGOCOCCAL VACCINES (ACWY) Aged Out No longer eligible based on patient's age to complete this topic MENINGOCOCCAL VACCINES (B) Aged Out N o longer eligible based on patient's age to complete this topic Medical Devices Not on file Procedures Procedure Name Priority Date/Time Associated Diagnosis Comments BI MAMMOGRAM SCREENING WITH TOMOSYNTHESIS WITH CAD (BILATERAL) Routine 10/17/2018 11:34 AM EST Screening for breast cancer from Last 3 Months or Most Recently Relevant to Health Maintenance Results * BI MAMMOGRAM SCREENING WITH TOMOSYNTHESIS WITH CAD (BILATERAL) (10/17/2018 11:34 AM EST) Anatomical Region Laterality Modality Breast Left, Breast Right, Breast Bilateral Bila teral Mammography 10/17/2018 8:46 PM EST Impressions 10/17/2018 8:49 PM EST BILATERAL BREASTS: Benign, no evidence of malignancy. Normal interval follow-up is recommended in 12 months. Bi-RADS: BI-RADS CATEGORY: 2 - Benign finding. DENSITY: The breast tissue is heterogeneously dense, an appearance which lowers the sensitivity of mammography. POS - [id number] Narrative 10/17/2018 8:49 PM EST STUDY: Bilateral screening mammography with tomosynthesis and CAD TECHNIQUE: Bilateral full-field digital screening mammography is obtained and read in conjunction with computer-aided detection. Tomosynthesis as well as 2-D C view imaging were obtained. COMPARISON: Comparison made to multiple prior, most recent July 23, 2014, and most remote July 06, 2012. BREAST COMPOSITION: The breasts are heterogeneously dense, which may obscure small masses. BILATERAL BREASTS: Interval increase in number of diffusely distributed round and coarse calcifications compared to 2013 study. No significant masses, calcifications or other abnormalities are seen. Procedure Note Sherley Adair MD - 10/17/2018 STUDY: Bilateral screening mammography with tomosynthesis and CAD TECHNIQUE: Bilateral full-field digital screening mammography is obtainedand read in conjunction with computer-aided detection. Tomosynthesis aswell as 2-D C view imaging were obtained. COMPARISON: Comparison made to multiple prior, most recent July, and most remote July 06, 2012. BREAST COMPOSITION: The breasts are heterogeneously dense, which mayobscure small masses. BILATERAL BREASTS: Interval increase in number of diffusely distributedround and coarse calcifications compared to take 2013 study. Nosignificant masses, calcifications or other abnormalities are seen. IMPRESSION: BILATERAL BREASTS: Benign, no evidence of malignancy. Normal intervalfollow-up is recommended in 12 months. Bi-RADS: BI-RADS CATEGORY: 2 - Benign finding. DENSITY: The breast tissue is heterogeneously dense, an appearance whichlowers the sensitivity of mammography. POS - [id number] Anna Rosa [facility] Radha l Result from Last 3 Months or Most Recently Relevant to Health Maintenance Insurance PPO PPO BLUE CROSS OUT OF STATE PPO OUT OF STATE PPO OUT [facility] PPO OUT [facility] PPO OUT [facility] PPO BLUE CROSS OUT OF STATE PPO OUT OF STATE PPO Care Teams Aquarist Relationship Specialty Start Date End Date Flaco Villela MD [address] [place] [address] Dr Da Silva, GILDA [id number] PCP - General 10/13/17 Additional Source Comments The information contained in this document represents components of the legal health record. It is not the complete legal health record.[facility]
== END 2025-07-04 09:53 | disposition home or self-care (01) ==
LOC: HO.HMCHD 09:05
PROVIDERS: PCP Internal Medicine; Visit Provider Physician Assistant Medical
DX: Z00.00 Encounter for general adult medical examination without abnormal findings (principal); E78.00 Pure hypercholesterolemia, unspecified; E04.1 Nontoxic single thyroid nodule; R22.2 Localized swelling, mass and lump, trunk

== ENCOUNTER 2025-07-04 09:57 | Outpatient (REF) | payer SELFPAY ==
[2025-07-04 13:12] LABS: Cholesterol 207 mg/dL (<200); HDL Cholesterol 94 mg/dL (>40); Triglycerides 77 mg/dL (<150)
== END 2025-07-04 09:58 | disposition home or self-care (01) ==
LOC: HO.10HDL 09:57
PROVIDERS: Visit Provider Physician Assistant Medical
DX: E78.5 Hyperlipidemia, unspecified (principal)
CPT/HCPCS: 36415; 80061

== ENCOUNTER 2025-09-04 07:59 | Outpatient (REF) | payer MEDICARE, OTHER, SELFPAY ==
--- NOTE | ~2025-09-04 | US_ITS ---
CLINICAL HISTORY: R22.2 - Localized swelling, mass and lump, trunk --- Additional Notes or Special Instructions: RUQ abdominal wall mass Targeted ultrasound of abdominal wall mass Comparison: None provided Technique: Targeted sonographic imaging, including color Doppler imaging to the area of interest of right periumbilical abdominal wall was performed by the spareribs trimmer. Multiple student services representative static and cine images were saved for review. Findings: In the subcutaneous soft tissue, well-defined ovoid soft tissue mass, slightly hyperechoic to adjacent adipose tissue, homogeneous, no posterior acoustic features or intralesional vascular flow, 9 x 5 x 12 mm. Surrounding soft tissue is unremarkable. Impression: Subcutaneous lipoma. This document has been electronically signed by: Sandra Abdalla MD on 09/04/2025 15:14:50
--- NOTE | ~2025-09-04 | US_ITS ---
EXAMINATION: US THYROID HISTORY: E04.1 - Nontoxic single thyroid nodule TECHNIQUE: Real-time grayscale ultrasound imaging was performed and images were reviewed. COMPARISON: Comparison is made with the prior examination dated 06/28/2024. FINDINGS: SIZE: The right thyroid lobe measures 5.6 x 1.6 x 2.1 cm. The left thyroid lobe measures 5.7 x 1.9 x 2.0 cm. The isthmus measures 5 mm. FLOW: Flow to the gland is increased. ECHOGENICITY: The echotexture of the gland is heterogeneous. NODULES: Again seen are multiple thyroid nodules as described below: Nodule #: 1 Location: Isthmus, measuring 6 x 3 x 5 mm (previously 7 x 3 x 5 mm). Shape: Wider than tall (0 points) Margins: Smooth (0 points) Echotexture: Isoechoic (1 point) Composition: Solid (2 points) Calcifications: None (0 points) Total points: 3 TIRADS: TR3: Mildly suspicious. Nodule #: 2 Location: Midportion of the right thyroid lobe measuring 7 x 4 x 4 mm (previously 5 x 3 x 6 mm). Shape: Wider than tall (0 points) Margins: Smooth (0 points) Echotexture: Isoechoic (1 point) Composition: Solid (2 points) Calcifications: None (0 points) Total points: 3 TIRADS: TR3: Mildly suspicious. Nodule #: 3 Location: Midportion of the left thyroid lobe measuring 8 x 5 x 8 mm (previously 7 x 5 x 6 mm). Shape: Wider than tall (0 points) Margins: Smooth (0 points) Echotexture: Isoechoic (1 point) Composition: Mixed (1 point) Calcifications: None (0 points) Total points: 2 TIRADS: TR2: Not suspicious Nodule #: 4 Location: Lower pole of the left thyroid lobe measuring 7 x 5 x 7 mm (previously 7 x 4 x 8 mm). Shape: Wider than tall (0 points) Margins: Smooth (0 points) Echotexture: n/a Composition: Spongiform (0 points) Calcifications: None (0 points) Total points: 0 TIRADS: TR1: Benign US/US thyroid IMPRESSION: Stable subcentimeter bilateral thyroid nodules as described above. ACR TI-RADS Guidelines TR1 (0 points): Benign. No follow-up or biopsy required TR2 (2 points): Not Suspicious. No biopsy or follow up indicated TR3 (3 points): Mildly Suspicious. FNA if >= 2.5 cm, Follow if >= 1.5 cm TR4 (4-6 points): Moderately Suspicious. FNA if >= 1.5 cm, Follow if >= 1.0 cm TR5 (>=7 points): Highly Suspicious. FNA if >= 1.0 cm, Follow if >= 0.5 cm Electronically signed by: Charles Faith MD 09/04/2025 09:31 AM [facility]
--- OUTSIDE RECORDS SUMMARY | 2025-09-04 08:10 | XMS_ITS | Clinical Summary ---
Author Organization [facility] Address [address] [facility] [address] [place] [phone] Phone Care Team Providers Care Fire Hydrant Mechanic Name Role Phone Flaco Villela MD Primary Care Provider Allergies Active Allergy Reactions Criticality Noted Date Comments Diphenhydramine Hcl 09/14/2020 Chocolate 09/25/2018 Onion 09/25/2018 [place] 09/25/2018 Penicillins Hives 10/17/2021 Perfume 09/25/2018 Medications [...] lowers the sensitivity of mammography. POS - [id number] Narrative 10/17/2018 8:49 PM EST STUDY: Bilateral [...] whichlowers the sensitivity of mammography. POS - [id number] [facility] Radha l Result from Last 3 Months or Most Recently Relevant to Health Maintenance Insurance PPO PPO BLUE CROSS OUT OF STATE PPO OUT OF STATE PPO OUT [facility] PPO OUT [facility] PPO OUT [facility] PPO BLUE CROSS OUT OF STATE PPO OUT OF STATE PPO Care Teams Fire Hydrant Mechanic Relationship Specialty Start Date End Date Flaco Villela MD [address] [place] [address] Dr Da Silva, GILDA [id number] PCP - General 10/13/17 Additional Source Comments The information contained in this document represents components of the legal health record. It is not the complete legal health record.[facility]
--- OUTSIDE RECORDS SUMMARY | 2025-09-04 08:10 | XMS_ITS | Patient Health Record ---
Author Organization [facility] Address [address] [place] [phone] Care Team Providers Care Fire Sprinkler Service Technician Name Role Phone Tika (RETIRED) Flaco DOLL Primary Care Provide r Unavailable Bruce Mehta Unavailable [phone] Teo DOLL, Michael Unavailable Unavailable Reason For Referral No Information Medications Medication SIG (Take, Route, Frequency, Duration) Notes Start Date End Date Status Simvastatin Active Social History Social History Additional Details Category Social Info Options Details Miscellaneous: Marital status: 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 [address] [place], [place] [id number] WILIAM PARKS Self - patient is the insured Medical (General) History Medical History History ICD Code hyperlipidemia acne rosacea skin cancers removed and replaced Denies ID,DM,CVA,Lung disease,renal dise ase Surgical History Surgery Date(Month/Year) facial skin cancer nose surgery eardrum surgery hernia hysterectomy benign lymph node removed from her groin region
== END 2025-09-04 08:00 | disposition home or self-care (01) ==
LOC: HO.US 07:59
PROVIDERS: PCP Physician Assistant Medical; Visit Provider Physician Assistant Medical
DX: E04.1 Nontoxic single thyroid nodule (principal); R22.2 Localized swelling, mass and lump, trunk
CPT/HCPCS: 76536; 76705

== ENCOUNTER → 2025-09-04 08:04 | Outpatient (BNV) | payer MEDICARE, OTHER, SELFPAY | PROVIDERS: PCP Physician Assistant Medical; Visit Provider Radiology Diagnostic Radiology | DX: E04.2 Nontoxic multinodular goiter (principal) | CPT/HCPCS: 76536 ==